=== PATIENT | male | born 2000 | race Caucasian/White ===

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

== ENCOUNTER 2023-06-12 19:39 | Observation (INO) | payer BC ==
--- NOTE | 2023-06-12 19:58 | ERPHSYRPT ---
- History of Present Illness Time Seen by Provider: 06/12/23 20:00 Historian: patient Exam Limitations: no limitations Patient Subjective Stated Complaint: rt side abd pain Triage Nursing Assessment: pt ambulated into ER without diff, significant other at bedside. Pt c/o RLQ pain since Sunday. Pt had vomiting on Sunday, but no nausea, vomiting or diarrhea since Sunday. Pt denies any indigestion, but states, "I feel constipated". LBM today but very minimal. Abd firm with active bs x4 quad, tender to RLQ on palpation. Physician History: Patient is a 22-year-old male presents to our ED as a referral from [facility] for evaluation of right lower quadrant pain. Patient states his right lower quadrant pain started last Sunday, 2 days ago. 3 days ago patient had a bout of emesis. Patient states his pain is progressive. Patient states "I feel constipated". However last bowel movement was small in amount however otherwise normal. Patient has no significant past medical history. Patient declined pain medication at this time. Symptoms are mild to moderate in intensity. Pain worse with palpation. Pain improved with rest. Significant other at bedside. They voiced no other complaints or concerns at this time. Portions of this note were created with voice recognition technology. There may be grammatical, spelling, punctuation or sound alike errors Timing/Duration: day(s) Activities at Onset: none Quality: aching Abdominal Pain Onset Location: RLQ Pain Radiation: no radiation Severity of Pain-Max: moderate Severity of Pain-Current: mild Modifying Factors: Improves With: palpation Associated Symptoms: vomiting Previous symptoms: no prior history Allergies/Adverse Reactions: azithromycin [From Zithromax] Allergy (Intermediate, Verified 06/12/23 19:54) ceftriaxone [From Rocephin] Allergy (Intermediate, Verified 06/12/23 19:54) Home Medications: No Reportable Medications [No Reported Medications] 06/12/23 [History] Hx Tetanus, Diphtheria Vaccination/Date Given: Yes Hx Influenza Vaccination/Date Given: No Hx Pneumococcal Vaccination/Date Given: No Immunizations Up to Date: No Travel Risk - International Travel Have you traveled outside of the country in past 3 weeks: No - Coronavirus Screening Are you exhibiting any of the following symptoms?: No Close contact with a COVID-19 positive Pt in past 14-21 Days: No - Vaccine Status Have you recieved a Covid-19 vaccination: No - Review of Systems Constitutional: No Symptoms, No Fever, No Chills Eyes: No Symptoms Ears, Nose, & Throat: No Symptoms Respiratory: No Symptoms, No Cough, No Dyspnea Cardiac: No Symptoms, No Chest Pain, No Edema, No Syncope Abdominal/Gastrointestinal: No Symptoms, No Abdominal Pain, No Nausea, No Vomiting, No Diarrhea Genitourinary Symptoms: No Symptoms, No Dysuria Musculoskeletal: No Symptoms, No Back Pain, No Neck Pain Skin: No Symptoms, No Rash Neurological: No Symptoms, No Dizziness, No Focal Weakness, No Sensory Changes Psychological: No Symptoms Endocrine: No Symptoms Hematologic/Lymphatic: No Symptoms Immunological/Allergic: No Symptoms All Other Systems: Reviewed and Negative - Past Medical History Pertinent Past Medical History: Yes Neurological History: No Pertinent History ENT History: No Pertinent History, Other Cardiac History: No Pertinent History Respiratory History: Bronchitis Endocrine Medical History: No Pertinent History Musculoskeletal History: No Pertinent History GI Medical History: No Pertinent History History: No Pertinent History Psycho-Social History: No Pertinent History Male Reproductive Disorders: No Pertinent History Other Medical History: 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 both eardrums reconstructed. tumor removed to rt arm - Social History Smoking Status: Never smoker Exposure to second hand smoke: No Drug Use: none Patient Lives Alone: No - Nursing Vital Signs Nursing Vital Signs: Initial Vital Signs Temperature 99.1 F 06/12/23 19:43 Pulse Rate 99 H 06/12/23 19:43 Respiratory Rate 20 06/12/23 19:43 Blood Pressure 128/78 06/12/23 19:43 O2 Sat by Pulse Oximetry 100 06/12/23 19:43 Pain Scale Pain Intensity 5 - Physical Exam General Appearance: no apparent distress, alert Eye Exam: PERRL/EOMI, eyes nml inspection Ears, Nose, Throat Exam: normal ENT inspection, pharynx normal, moist mucous membranes Neck Exam: normal inspection, non-tender, supple, full range of motion Respiratory Exam: normal breath sounds, lungs clear, airway intact, No respiratory distress Cardiovascular Exam: regular rate/rhythm, normal heart sounds, normal peripheral pulses Gastrointestinal/Abdomen Exam: soft, tenderness, other (Tenderness to palpation right lower quadrant), No mass Back Exam: normal inspection, normal range of motion, No CVA tenderness, No vertebral tenderness Extremity Exam: normal inspection, normal range of motion, pelvis stable Neurologic Exam: alert, oriented x 3, cooperative, normal mood/affect, sensation nml, No motor deficits Skin Exam: normal color, warm, dry Lymphatic Exam: No adenopathy SpO2 Interpretation: normal SpO2: 100 O2 Delivery: Room Air - Course Nursing assessment & vital signs reviewed: Yes - CT Exams Abdomen/Pelvis CT Interpretation: Tele-radiologist Report (Acute appendicitis, nephrolithiasis, mild to moderate degenerative changes in the thoracolumbar spine with tiny osteophyte formation Schmorl node and formation of multilevel wedge compression fractures these findings are inconsistent with the patient's age workup for Shermans disease is advised afte) Ordered Tests: Active Orders 24 hr Category Date Time Status IV Insertion STAT Care 06/12/23 21:25 Active ABDOMEN AND PELVIS W/0 CONTRAS [CT] Stat Exams 06/12/23 19:41 Completed CBC W DIFF Stat Lab 06/12/23 21:10 Completed CMP Stat Lab 06/12/23 21:10 Completed LIPASE Stat Lab 06/12/23 21:10 Completed UA W/RFX UR CULTURE Stat Lab 06/12/23 21:38 Ordered Medication Summary Generic Name Dose Route Start Last Admin Trade Name Freq PRN Reason Stop Dose Admin Sodium Chloride 1,000 mls @ 999 mls/hr 06/12/23 21:25 06/12/23 21:42 Sodium Chloride 0.9% 1000 Ml IV 06/12/23 22:25 999 mls/hr .Q1H1M STA Administration Levofloxacin/Dextrose 500 mg in 100 mls @ 100 mls/hr 06/12/23 21:26 Levofloxacin 500mg/100ml D5w IV 06/12/23 22:25 STAT STA Discontinued Medications Generic Name Dose Route Start Last Admin Trade Name Freq PRN Reason Stop Dose Admin Metronidazole 500 mg in 100 mls @ 200 mls/hr 06/12/23 21:26 06/12/23 21:43 Flagyl 500 Mg Ivpb IV 06/12/23 21:55 200 ml/hr STAT STA 200 mls/hr Administration Metronidazole Confirm 06/12/23 21:31 Flagyl 500 Mg Ivpb Administered 06/12/23 21:32 Dose 500 mg in 100 mls @ ud IV .STK-MED ONE Sodium Chloride Confirm 06/12/23 21:31 Sodium Chloride 0.9% 1000 Ml Administered 06/12/23 21:32 Dose 1,000 mls @ ud .ROUTE .STK-MED ONE Morphine Sulfate 4 mg 06/12/23 21:42 Morphine Sulfate 4 Mg/Ml Injection IV 06/12/23 21:43 STAT ONE Morphine Sulfate Confirm 06/12/23 22:07 Morphine Sulfate 4 Mg/Ml Injection Administered 06/12/23 22:08 Dose 4 mg .ROUTE .STK-MED ONE Ondansetron HCl 4 mg 06/12/23 21:42 Ondansetron Hcl 4 Mg/2 Ml Vial IV 06/12/23 21:43 STAT ONE Ondansetron HCl Confirm 06/12/23 22:07 Ondansetron Hcl 4 Mg/2 Ml Vial Administered 06/12/23 22:08 Dose 4 mg .ROUTE .STK-MED ONE Lab/Rad Data: Laboratory Result Diagrams 06/12/23 21:10 06/12/23 21:10 Laboratory Results 06/12/23 06/12/23 Range/Units 21:10 21:10 WBC 14.6 H (4.0-10.5) x10^3/uL RBC 5.34 (4.1-5.6) x10^6/uL Hgb 15.4 (12.5-18.0) g/dL Hct 46.0 (42-50) % MCV 86.1 (78-100) fL MCH 28.8 (26-32) pg MCHC 33.5 (32-36) g/dL RDW 11.9 (11.5-14.0) % Plt Count 238 (150-450) x10^3/uL MPV 10.6 (7.5-11.0) fL Gran % 76.8 H (36.0-66.0) % Immature Gran % (Auto) 0.3 (0.00-0.4) % Nucleat RBC Rel Count 0.0 (0.00-0.1) % Eos # (Auto) 0.08 (0-0.5) x10^3/uL Immature Gran # (Auto) 0.04 H (0.00-0.03) x10^3u/L Absolute Lymphs (auto) 2.14 (1.0-4.6) x10^3/uL Absolute Monos (auto) 1.11 (0.0-1.3) x10^3/uL Absolute Nucleated RBC 0.00 (0.00-0.01) x10^3u/L Lymphocytes % 14.7 L (24.0-44.0) % Monocytes % 7.6 (0.0-12.0) % Eosinophils % 0.5 (0.00-5.0) % Basophils % 0.1 (0.0-0.4) % Absolute Granulocytes 11.18 H (1.4-6.9) x10^3/uL Basophils # 0.02 (0-0.4) x10^3/uL Sodium 135 L (137-145) mmol/L Potassium 4.1 (3.5-5.1) mmol/L Chloride 98 (98-107) mmol/L Carbon Dioxide 27 (22-30) mmol/L Anion Gap 14.3 (5-15) MEQ/L BUN 14 (9-20) mg/dL Creatinine 0.77 (0.66-1.25) mg/dL Estimated GFR 130.6 ML/MIN Glucose 96 (74-106) mg/dL Calcium 9.7 (8.4-10.2) mg/dL Total Bilirubin 1.90 H (0.2-1.3) mg/dL AST 24 (17-59) U/L ALT 28 (0-50) U/L Alkaline Phosphatase 80 (38-126) U/L Serum Total Protein 8.3 H (6.3-8.2) g/dL Albumin 4.5 (3.5-5.0) g/dL Lipase 32 (23-300) U/L - Progress Progress: improved Progress Note: Patient his mother and his aunt were advised of the findings of acute appendicitis as well as the multilevel wedge compression fractures of the spine. The suspicion for Shermans disease was conveyed to patient and family. They agree to follow-up with their primary care doctor for further evaluation and treatment 06/12/23 22:[address] Figueroa at 10:09 PM. He advised admitting to the medical service. He may possibly take patient to the OR tonight for an appendectomy. Antibiotics infused. Pain medication administered. IV fluids infusing. Patient has been n.p.o. since yesterday. Plan of care discussed with patient and family. They agree to admission to [facility] for further evaluation and treatment. Portions of this note were created with voice recognition technology. There may be grammatical, spelling, punctuation or sound alike errors Complexity of problems addressed is high, severe exacerbation with threat to bodily function. No critical care time Complexity of data reviewed and analyzed is extensive. Test ordered test reviewed. Results analyzed and correlated clinically. Plan of care discussed with on-call general surgeon as well as hospitalist. Risk of complication and or risk of morbidity/mortality of patient management is high. Patient will require hospitalization for further evaluation and treatment. Vital stable. Time spent to admit patient is approximately 20 minutes. Plan of care established for shared decision making. Portions of this note were created with voice recognition technology. There may be grammatical, spelling, punctuation or sound alike errors 06/12/23 22:[address] Calzada/hospitalist at 10:26 PM 06/12/23 22:[address] Palacios Counseled pt/family regarding: lab results, diagnosis, rad results - Departure Departure Disposition: Observation Clinical Impression: Acute appendicitis, Nephrolithiasis, Scheurmann's disease, Wedge compression fractures of spine, Leukocytosis Condition: Stable Critical Care Time: No Referrals: KATHY TALAMANTES [employer] NURSE SUPERVISOR [Primary Care Provider] - Follow up/PCP as directed
--- NOTE | 2023-06-12 21:11 | XRAY ---
CLINICAL HISTORY:abd pain COMPARISON:None. TECHNIQUE:CT scan of the abdomen and pelvis was performed without IV contrast. Coronal and sagittal reconstructions were also obtained. FINDINGS: Edematous and swollen tubular structure measuring 15 mm is noted in right iliac fossa with marked perilesional fat stranding. The cecum and proximal ascending colon are also edematous. Ileocecal valve and distal ileum also appear to be involved by the inflammatory process. Several mesenteric lymph nodes are visualized, particularly along right colic branch and iliocolic branch of SMA, index node measuring 8.0 mm in short axis. Mild to moderate amount of free fluid is identified in right iliac fossa with peritoneal thickening. No definite collection or abscess noted. Liver is normal size and shape and with regular margins. No focal or diffuse parenchymal abnormality. No hepatic mass is identified. The portal vein, intrahepatic biliary radicals and the bile ducts are normal. Gall bladder appears normal with wall thickness. No radio opaque calculus or pericholecystic fluid is identified. Common bile duct appears normal. Pancreas appears normal. No peripancreatic fat stranding, pancreatic pseudocyst or peripancreatic fluid collection. Spleen normal in size, no mass seen. Atleast two subcentimeter splenenculi seen at hium. Both adrenal glands are unremarkable. Both kidneys are normal in size, shape and orientation. A 5 mm non-obstructing calculus seen at mid pole of right kidney without hydronephrosis. No calculi, cyst mass or hydronephrosis seen on left side. Both ureters and urinary bladder appear normal. Stomach and rest small and large bowel loops are unremarkable. No obstruction is identified. Sigmoid and rectum appear normal. Pelvic viscera show normal morphology. Multiple phleboliths are seen in pelvis. No evidence of pelvic side wall lymphadenopathy. Visualized thoracic and lumbar spine show mild degenerative changes in the form of tiny osteophyte formation, schmoral node formation and multiple wedge shaped compression fractures. Visualized lung bases are unremarkable. No pleural or pericardial effusion seen. IMPRESSION: 1. 15 mm dilated tubular structure seen in right iliac fossa with extensive perilesional fat stranding, edematous caecum ,proximal ascending colon and distal ileum with reactive appearing loco-regional lymphadenopathy. Mild to moderate amount of free fluid is seen in right iliac fossa, no definite collection/abscess is seen. These findings are concerning for acute appendicitis. Clinical evaluation is advised. 2. 5 mm non-obstructing calculus seen in midpole of right kidney. 3. Mild to moderate degenerative changes in visualized thoraco-lumbar spine with tiny osteophyte formation, schmorl node formation and multilevel wedge compression fractures. These findings are inconsistent with the age of patient. Work up for Scheurman disease is advised after resolution of acute pathology. [facility] ER was called at at 09:03 PM EST, 06/12/2023 and results were verbally communicated to Dr. Restrepo. Electronically Signed by: Cintia Hyde MD. (06/12/2023 21:07:23 EST)
[2023-06-12] MEDS ORDERED: Sodium Chloride 0.9% 1000 ML 1,000 ML IV STA (21:25)
[2023-06-12] MEDS ORDERED: FLAGYL 500 MG IVPB 500 MG/100 ML BAG IV STA (21:26)
[2023-06-12] MEDS ORDERED: Levofloxacin 500MG/100ML D5W 500 MG/100 ML BAG IV STA (21:26)
[2023-06-12] MEDS ORDERED: FLAGYL 500 MG IVPB 500 MG/100 ML BAG IV ONE (21:31)
[2023-06-12] MEDS ORDERED: Sodium Chloride 0.9% 1000 ML 1,000 ML ONE (21:31)
[2023-06-12 21:35] LABS: ALBUMIN 4.5 g/dL (3.5-5.0); ANION GAP 14.3 MEQ/L (5-15); BILIRUBIN,TOTAL 1.9 mg/dL (0.2-1.3); Calcium 9.7 mg/dL (8.4-10.2); Creatinine 1 0.77 mg/dL (0.66-1.25); EST GLOMERULAR FILTRATION RATE 130.6 ML/MIN; Potassium 4.1 mmol/L (3.5-5.1); Total Protein 8.3 g/dL (6.3-8.2)
[2023-06-12 21:41] LABS: Absolute Neutrophil Ct (ANC) 11.18 x10^3/uL (1.4-6.9); BASOPHIL % 0.1 % (0.0-0.4); Basophil (Absolute #) 0.02 x10^3/uL (0-0.4); Eosinophil % 0.5 % (0.00-5.0); Eosinophil (Absolute #) 0.08 x10^3/uL (0-0.5); Hemoglobin 15.4 g/dL (12.5-18.0); IMMATURE GRAN # 0.04 x10^3u/L (0.00-0.03); IMMATURE GRAN % 0.3 % (0.00-0.4); Lymphocyte (Absolute #) 2.14 x10^3/uL (1.0-4.6); Lymphocytes % 14.7 % (24.0-44.0); Mean Cell Volume 86.1 fL (78-100); Mean Corpuscular Hemoglobin 28.8 pg (26-32); Mean Corpuscular Hgb Concent. 33.5 g/dL (32-36); Mean Platelet Volume 10.6 fL (7.5-11.0); Monocyte (Absolute #) 1.11 x10^3/uL (0.0-1.3); Monocytes % 7.6 % (0.0-12.0); Neutrophil % 76.8 % (36.0-66.0); Platelet Count 238 x10^3/uL (150-450); Red Blood Count 5.34 x10^6/uL (4.1-5.6); Red Cell Distribution Width 11.9 % (11.5-14.0); White Blood Count 14.6 x10^3/uL (4.0-10.5)
[2023-06-12] MEDS ORDERED: MORPHINE SULFATE 4 MG INJ IV ONE (21:42)
[2023-06-12] MEDS ORDERED: Zofran 4 MG/2 ML VIAL IV ONE (21:42)
[2023-06-12] MEDS ORDERED: Zofran 4 MG/2 ML VIAL ONE (22:07)
[2023-06-12] MEDS ORDERED: MORPHINE SULFATE 4 MG INJ ONE (22:07)
[2023-06-12] MEDS ORDERED: Levofloxacin 500MG/100ML D5W 500 MG/100 ML BAG IV ONE (22:18)
[2023-06-12 22:31] LABS: Appearance Clear (Clear); Bacteria None Seen /HPF (None Seen); Bilirubin Small (Negative); Blood Negative (Negative); Epithelial Cells None Seen /HPF (None Seen); Glucose, Urine Negative (Negative); Hyaline Casts NONE SEEN /LPF (0-2); Ketones 80 (Negative); Leukocyte Esterase Negative (Negative); Nitrite Negative (Negative); Ph 5.5 (4.6-8.0); Protein,Urine Dip Trace (Negative); RBC 0-2 /HPF (0-5); WBC 0-2 /HPF (0-5)
[2023-06-12 22:33] LABS: ADD URINE CULTURE? NO (NO)
[2023-06-12] MEDS ORDERED: Quelicin Fliptop 200 MG/10 ML ONE (23:03)
[2023-06-12] MEDS ORDERED: Versed 2 MG/2 ML Injection ONE (23:03)
[2023-06-12] MEDS ORDERED: SUBLIMAZE 100 MCG/2 ML ONE (23:03)
[2023-06-12] MEDS ORDERED: DIPRIVAN 200 MG/20 ML IV ONE (23:03)
[2023-06-12] MEDS ORDERED: Zemuron 100 MG/10 ML ONE (23:03)
[2023-06-12] MEDS ORDERED: Sensorcaine 0.25% 10 ML ONE (23:05)
[2023-06-12] MEDS ORDERED: Lactated Ringers 2,000 ML IV ONE (23:31)
[2023-06-12] MEDS ORDERED: Xylocaine-Mpf 2% 5 Ml Vial ONE (23:36)
[2023-06-13] MEDS ORDERED: Sodium Chloride 100ML MINI-BAG PLUS 100 ML IV ONE ×2 (00:01→04:57)
[2023-06-13] MEDS ORDERED: SUBLIMAZE 100 MCG/2 ML ONE (00:09)
[2023-06-13] MEDS ORDERED: Zemuron 100 MG/10 ML ONE (00:13)
[2023-06-13] MEDS ORDERED: TORAdol 30 mg Injection ONE (00:30)
[2023-06-13] MEDS ORDERED: Zofran 4 MG/2 ML VIAL ONE ×2 (00:30→02:05)
[2023-06-13] MEDS ORDERED: BRIDION 200MG/2ML IV ONE (00:30)
[2023-06-13] MEDS ORDERED: Hydromorphone 1 mg/ml Injection ONE ×2 (01:02→01:22)
[2023-06-13] MEDS ORDERED: FEVERALL 650 MG PR PRN (03:50)
[2023-06-13] MEDS ORDERED: PROTONIX 40 MG IV IV SCH ×2 (04:00→22:00)
--- NOTE | 2023-06-13 04:07 | PCM.HP ---
History of Present Illness - Chief Complaint Date: 06/12/23 History of Present Illness: is a 22 year old male who presented as a referral from [facility] after the patient reported progressively worsening right lower quadrant abdominal pain which began 2 days prior to admission, with one episode of emesis (nonbilious and nonbloody) 3 days ago. He reported feeling "constipated" in the ED but his last bowel movement was small in amount however otherwise normal without blood. No fever was reported. - Review of Systems Constitutional: No Symptoms Eyes: No Symptoms Ears, Nose, & Throat: No Symptoms Respiratory: No Symptoms Cardiac: No Symptoms Abdominal/Gastrointestinal: Abdominal Pain, Nausea, Vomiting Genitourinary Symptoms: No Symptoms Musculoskeletal: Back Pain Skin: No Symptoms Neurological: No Symptoms Psychological: No Symptoms Endocrine: No Symptoms Hematologic/Lymphatic: No Symptoms Immunological/Allergic: No Symptoms Medications & Allergies Home Medications: Home Medication List No Reportable Medications [No Reported Medications] 06/12/23 [History Confirmed 06/12/23] Allergies/Adverse Reactions: Allergies Allergy/AdvReac Type Severity Reaction Status Date / Time azithromycin [From Zithromax] Allergy Intermediate Verified 06/12/23 19:54 ceftriaxone [From Rocephin] Allergy Intermediate Verified 06/12/23 19:54 - Past Medical History Past Medical History: Yes Neurological History: No Pertinent History ENT History: No Pertinent History, Other Cardiac History: No Pertinent History Respiratory History: Bronchitis Endocrine Medical History: No Pertinent History Musculoskelatal History: No Pertinent History GI Medical History: No Pertinent History History: No Pertinent History Pyscho-Social History: No Pertinent History Male Reproductive Disorders: No Pertinent History Comment: 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 both eardrums reconstructed. tumor removed to rt arm - Social History Smoking Status: Never smoker Exposure to second hand smoke: No Alcohol: Rarely Drug Use: none - Physical Exam Vital Signs: Vital Signs - 24 hr Temp Pulse Resp BP BP Pulse Ox 06/12/23 22:30 100.1 F 90 18 128/78 100 06/12/23 22:27 100 06/12/23 22:20 100 06/12/23 22:14 94 H 18 126/81 99 06/12/23 21:30 125/70 06/12/23 21:00 103 H 18 117/82 100 06/12/23 20:30 103 H 16 135/87 99 06/12/23 20:19 93 H 15 134/85 99 06/12/23 20:00 94 H 14 129/78 99 06/12/23 19:43 99.1 F 99 H 20 128/78 100 General Appearance: no apparent distress, alert Neurologic Exam: alert, oriented x 3, cooperative, cost recovery technician II-XII nml as tested, normal mood/affect, nml cerebellar function Eye Exam: PERRL/EOMI, eyes nml inspection Ears, Nose, Throat Exam: normal ENT inspection Neck Exam: normal inspection, non-tender, supple, full range of motion Respiratory Exam: normal breath sounds, lungs clear Cardiovascular Exam: regular rate/rhythm, normal heart sounds Gastrointestinal/Abdomen Exam: soft, normal bowel sounds, tenderness (right side of abdomen wound covered in dressing) Back Exam: normal range of motion Extremity Exam: normal inspection, normal range of motion Skin Exam: normal color Results - Labs Lab/Micro Results: Lab Results-Last 24 Hours 06/12/23 06/12/23 06/12/23 Range/Units 21:10 21:10 21:38 WBC 14.6 H (4.0-10.5) x10^3/uL RBC 5.34 (4.1-5.6) x10^6/uL Hgb 15.4 (12.5-18.0) g/dL Hct 46.0 (42-50) % MCV 86.1 (78-100) fL MCH 28.8 (26-32) pg MCHC 33.5 (32-36) g/dL RDW 11.9 (11.5-14.0) % Plt Count 238 (150-450) x10^3/uL MPV 10.6 (7.5-11.0) fL Gran % 76.8 H (36.0-66.0) % Immature Gran % (Auto) 0.3 (0.00-0.4) % Nucleat RBC Rel Count 0.0 (0.00-0.1) % Eos # (Auto) 0.08 (0-0.5) x10^3/uL Immature Gran # (Auto) 0.04 H (0.00-0.03) x10^3u/L Absolute Lymphs (auto) 2.14 (1.0-4.6) x10^3/uL Absolute Monos (auto) 1.11 (0.0-1.3) x10^3/uL Absolute Nucleated RBC 0.00 (0.00-0.01) x10^3u/L Lymphocytes % 14.7 L (24.0-44.0) % Monocytes % 7.6 (0.0-12.0) % Eosinophils % 0.5 (0.00-5.0) % Basophils % 0.1 (0.0-0.4) % Absolute Granulocytes 11.18 H (1.4-6.9) x10^3/uL Basophils # 0.02 (0-0.4) x10^3/uL Sodium 135 L (137-145) mmol/L Potassium 4.1 (3.5-5.1) mmol/L Chloride 98 (98-107) mmol/L Carbon Dioxide 27 (22-30) mmol/L Anion Gap 14.3 (5-15) MEQ/L BUN 14 (9-20) mg/dL Creatinine 0.77 (0.66-1.25) mg/dL Estimated GFR 130.6 ML/MIN Glucose 96 (74-106) mg/dL Calcium 9.7 (8.4-10.2) mg/dL Total Bilirubin 1.90 H (0.2-1.3) mg/dL AST 24 (17-59) U/L ALT 28 (0-50) U/L Alkaline Phosphatase 80 (38-126) U/L Serum Total Protein 8.3 H (6.3-8.2) g/dL Albumin 4.5 (3.5-5.0) g/dL Lipase 32 (23-300) U/L Urine Color Dark Yellow (Yellow) Urine Appearance Clear (Clear) Urine pH 5.5 (4.6-8.0) Ur Specific [place] 1.020 (1.005-1.030) Urine Protein Trace A (Negative) Urine Glucose (UA) Negative (Negative) mg/dL Urine Ketones 80 A (Negative) Urine Blood Negative (Negative) Urine Nitrite Negative (Negative) Urine Bilirubin Small A (Negative) Urine Urobilinogen 2.0 A (0.2) mg/dL Ur Leukocyte Esterase Negative (Negative) U Hyaline Cast (Auto) NONE SEEN (0-2) /LPF Urine Microscopic RBC 0-2 (0-5) /HPF Urine Microscopic WBC 0-2 (0-5) /HPF Ur Epithelial Cells None Seen (None Seen) /HPF Urine Bacteria None Seen (None Seen) /HPF Urine Culture Reflexed NO (NO) - Radiology Impressions Radiology Exams & Impressions: Radiology Procedures Category Date Time Status ABDOMEN AND PELVIS W/0 CONTRAS [CT] Stat Exams 06/12/23 19:41 Completed - Other Procedures and Tests Respiratory Therapy 06/13/23 03:57 Incentive Spirometry TID Assessment/Plan (1) Acute appendicitis Current Visit: Yes Status: Acute Assessment & Plan: S/P Appendectomy. CT scan suggests ascending colitis, which may require extended antibiotics course. Surgery following. Analgesia. Advancing diet. Code(s): K35.80 - UNSPECIFIED ACUTE APPENDICITIS (2) Leukocytosis Current Visit: Yes Status: Acute Assessment & Plan: Likely due to appendicitis. UA negative. Will monitor trend. On IV antibiotics. 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 Will need follow up with PCP as outpatient with further workup. The patient has reported some vague back pain but there was no acute worsening or trauma recently. Code(s): M42.00 - JUVENILE OSTEOCHONDROSIS OF SPINE, SITE UNSPECIFIED Telemedicine Encounter - Telemedicine Encounter Telemedicine Encounter: The entirety of this encounter was performed via Telemedicine"
[2023-06-13] MEDS ORDERED: Zofran 4 MG/2 ML VIAL IV PRN ×2 (04:13→05:25)
[2023-06-13] MEDS ORDERED: PIPERACILLIN/TAZOBACTAM IV ONE ×2 (04:57)
[2023-06-13] MEDS ORDERED: MORPHINE SULFATE 2 MG INJ IV PRN (05:01)
[2023-06-13] MEDS: PIPERACILLIN/TAZOBACTAM 3.375 GM in Sodium Chloride 100ML MINI-BAG PLUS 100 ML IV SCH ×3 (05:23→17:46)
--- NOTE | 2023-06-13 05:23 | PCM.DS ---
Discharge Summary Date of Admission: 06/13/23 02:00 Date of Discharge: 06/13/23 Admitting Physician: MONO WILKS MD Consults: Consults on Case 06/13/23 03:49 Consult Surgery ROUTINE Primary Care Provider: KATHY TALAMANTES Allergies Allergies azithromycin [From Zithromax] Allergy (Intermediate, Verified 06/12/23 19:54) ceftriaxone [From Rocephin] Allergy (Intermediate, Verified 06/12/23 19:54) Hospital Summary - Hospital Course Hospital Course: is a 22 year old male who presented as a referral from [facility] after the patient reported progressively worsening right lower quadrant abdominal pain which began 2 days prior to admission, with one episode of emesis (nonbilious and nonbloody) 3 days ago. He reported feeling "constipated" in the ED but his last bowel movement was small in amount however otherwise normal without blood. No fever was reported. Patient admitted for acute appendicitis and is s/p appendectomy. Patient treated with zosyn. Incidental finding of possible wedge compression fractures noted on CT. Will need follow up with PCP as outpatient with further workup. The patient has reported some vague back pain but there was no acute worsening or trauma recently. New Diagnosis: Acute appendicitis New Medications: Follow Up: PCP/surgery Results pending: Pathology Latest Assessment & Plan S/P Appendectomy. CT scan suggests ascending colitis, which may require extended antibiotics course. Surgery following. Analgesia. Advancing diet. Code(s): K35.80 - UNSPECIFIED ACUTE APPENDICITIS (2) Leukocytosis Current Visit: Yes Status: Acute Assessment & Plan: Likely due to appendicitis. UA negative. Will monitor trend. On IV antibiotics. 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 Will need follow up with PCP as outpatient with further workup. The patient has reported some vague back pain but there was no acute worsening or trauma recently. Code(s): M42.00 - JUVENILE OSTEOCHONDROSIS OF SPINE, SITE UNSPECIFIED I spent 35 minutes [id number] with the patient on the day of discharge performing discharge exam, discussing hospital stay and discharge instructions with patient and caregivers, preparation of discharge records, prescriptions & referral forms and addressing any questions/concerns the patient had as documented above. - Vitals & Intake/Output Vital Signs: Vital Signs Temperature 100.0 F 06/13/23 04:45 Pulse Rate 99 H 06/13/23 04:45 Respiratory Rate 17 06/13/23 04:45 Blood Pressure 128/66 06/13/23 04:45 O2 Sat by Pulse Oximetry 97 06/13/23 04:45 Intake & Output: Intake & Output 06/10/23 06/11/23 06/12/23 06/13/23 11:59 11:59 11:59 11:59 Weight 105.233 kg - Lab Result Diagrams: 06/12/23 21:10 06/12/23 21:10 Lab Results-Last 24 Hrs: Lab Results-Last 24 Hours 06/12/23 06/12/23 06/12/23 Range/Units 21:10 21:10 21:38 WBC 14.6 H (4.0-10.5) x10^3/uL RBC 5.34 (4.1-5.6) x10^6/uL Hgb 15.4 (12.5-18.0) g/dL Hct 46.0 (42-50) % MCV 86.1 (78-100) fL MCH 28.8 (26-32) pg MCHC 33.5 (32-36) g/dL RDW 11.9 (11.5-14.0) % Plt Count 238 (150-450) x10^3/uL MPV 10.6 (7.5-11.0) fL Gran % 76.8 H (36.0-66.0) % Immature Gran % (Auto) 0.3 (0.00-0.4) % Nucleat RBC Rel Count 0.0 (0.00-0.1) % Eos # (Auto) 0.08 (0-0.5) x10^3/uL Immature Gran # (Auto) 0.04 H (0.00-0.03) x10^3u/L Absolute Lymphs (auto) 2.14 (1.0-4.6) x10^3/uL Absolute Monos (auto) 1.11 (0.0-1.3) x10^3/uL Absolute Nucleated RBC 0.00 (0.00-0.01) x10^3u/L Lymphocytes % 14.7 L (24.0-44.0) % Monocytes % 7.6 (0.0-12.0) % Eosinophils % 0.5 (0.00-5.0) % Basophils % 0.1 (0.0-0.4) % Absolute Granulocytes 11.18 H (1.4-6.9) x10^3/uL Basophils # 0.02 (0-0.4) x10^3/uL Sodium 135 L (137-145) mmol/L Potassium 4.1 (3.5-5.1) mmol/L Chloride 98 (98-107) mmol/L Carbon Dioxide 27 (22-30) mmol/L Anion Gap 14.3 (5-15) MEQ/L BUN 14 (9-20) mg/dL Creatinine 0.77 (0.66-1.25) mg/dL Estimated GFR 130.6 ML/MIN Glucose 96 (74-106) mg/dL Calcium 9.7 (8.4-10.2) mg/dL Total Bilirubin 1.90 H (0.2-1.3) mg/dL AST 24 (17-59) U/L ALT 28 (0-50) U/L Alkaline Phosphatase 80 (38-126) U/L Serum Total Protein 8.3 H (6.3-8.2) g/dL Albumin 4.5 (3.5-5.0) g/dL Lipase 32 (23-300) U/L Urine Color Dark Yellow (Yellow) Urine Appearance Clear (Clear) Urine pH 5.5 (4.6-8.0) Ur Specific [place] 1.020 (1.005-1.030) Urine Protein Trace A (Negative) Urine Glucose (UA) Negative (Negative) mg/dL Urine Ketones 80 A (Negative) Urine Blood Negative (Negative) Urine Nitrite Negative (Negative) Urine Bilirubin Small A (Negative) Urine Urobilinogen 2.0 A (0.2) mg/dL Ur Leukocyte Esterase Negative (Negative) U Hyaline Cast (Auto) NONE SEEN (0-2) /LPF Urine Microscopic RBC 0-2 (0-5) /HPF Urine Microscopic WBC 0-2 (0-5) /HPF Ur Epithelial Cells None Seen (None Seen) /HPF Urine Bacteria None Seen (None Seen) /HPF Urine Culture Reflexed NO (NO) - Radiology Exams Ordered Rad Exams-Entire Visit: Radiology Procedures Category Date Time Status ABDOMEN AND PELVIS W/0 CONTRAS [CT] Stat Exams 06/12/23 19:41 Completed - Procedures and Test Procedures and Tests throughout Hospitalization: Therapy Orders & Screens 06/13/23 03:57 Incentive Spirometry TID Comment: - Discharge Disposition: Home, Self-Care Condition: Stable Prescriptions: No Action No Reportable Medications [No Reported Medications] Additional Instructions: Follow up with your PCP for further evaluation of the incidental findings of wedge fractures/deformities in your spinal column. Follow up with: KATHY TALAMANTES NP [Primary Care Provider] -
[2023-06-13] MEDS ORDERED: PIPERACILLIN/TAZOBACTAM 3.375 GM in Sodium Chloride 100ML MINI-BAG PLUS 100 ML IV SCH (06:00)
[2023-06-13 06:53] LABS: Hematocrit 40.6 % (42-50); Hemoglobin 13.4 g/dL (12.5-18.0); Mean Cell Volume 86.9 fL (78-100); Mean Corpuscular Hemoglobin 28.7 pg (26-32); Mean Platelet Volume 10.3 fL (7.5-11.0); Platelet Count 222 x10^3/uL (150-450); Red Blood Count 4.67 x10^6/uL (4.1-5.6); Red Cell Distribution Width 11.9 % (11.5-14.0)
[2023-06-13] MEDS ORDERED: MORPHINE SULFATE 4 MG INJ IV PRN (07:02)
[2023-06-13 07:33] LABS: ALBUMIN 3.7 g/dL (3.5-5.0); BILIRUBIN,TOTAL 2.8 mg/dL (0.2-1.3); Calcium 8.7 mg/dL (8.4-10.2); Creatinine 1 0.76 mg/dL (0.66-1.25); EST GLOMERULAR FILTRATION RATE 131.1 ML/MIN; Potassium 4.1 mmol/L (3.5-5.1); Total Protein 6.9 g/dL (6.3-8.2)
[2023-06-13] MEDS: NORCO 5/325 MG PO PRN ×4 (08:17→22:18)
[2023-06-13] MEDS: Acidophilus TABLET PO SCH (08:18)
--- NOTE | 2023-06-13 09:10 | CONS ---
CONSULT DATE: 06/12/2023 HISTORY: This 22-year-old had some abdominal pain on the right side of his abdomen since Sunday. He had a little bit of nausea, sick a little bit. No new bloody stools. PAST MEDICAL HISTORY: Denies chronic illnesses. PAST SURGICAL HISTORY: Tumor removed from his arm. [place] teeth. Ear reconstruction. He denied prior abdominal surgery. HOME MEDICATIONS: None on a regular basis. ALLERGIES: ROCEPHIN. ZITHROMAX. HE THINKS HE HAS TAKEN PENICILLIN IN THE PAST. FAMILY HISTORY: Negative for diabetes, cancer, inflammatory bowel disease according to the patient. SOCIAL HISTORY: He denies smoking. He denies alcohol abuse. REVIEW OF SYSTEMS: Twelve systems reviewed. No chest pain or palpitations other systems negative or noncontributory as above and per preadmission questionnaire. PHYSICAL EXAMINATION: GENERAL: No acute distress. HEENT: Sclera nonicteric. EOMI. Oral mucous membranes moist. NECK: No JVD. CHEST: Equal excursion, nonlabored breathing. CVS: Regular rate and rhythm. ABDOMEN: Soft, some tenderness in right lower quadrant, a little bit of voluntary guarding. No rebound currently. EXTREMITIES: No cyanosis. NEURO: Alert, moving extremities grossly symmetrically. PSYCH: Appropriate mood and affect. SKIN: Dry. LAB DATA AND TESTS: Labs reviewed. CT scan reviewed personally. He has a dilated appendix. Radiologist feels consistent with acute appendicitis. IMPRESSION: Acute right lower quadrant pain. History and physical exam suspicious for acute appendicitis. The differential could include colitis, infectious versus inflammatory bowel disease or other etiology. Either way given the size of the appendix on scan, I recommend proceeding with diagnostic laparoscopy, laparoscopic appendectomy possible open with OR time available. General risk of bleeding or infection, risk of trocar injury or hernia, risk of bowel, bladder or blood vessel injury, risk of subsequent intraabdominal abscess or fistula formation possibly requiring percutaneous or open drainage. General risk of anesthesia, deep vein thrombosis, pulmonary embolism, pneumonia. Risk of bloating, ileus or obstruction, risk of ongoing infection, possibility of finding a normal appendix likely would be removed incidentally and look for other etiology that might need taken care of surgically. Otherwise, general risk of aches and pains but not limited to. Consent obtained. He understands if it happens to be perforated there is a good chance he will be in the hospital longer. Will proceed with diagnostic laparoscopy, laparoscopic appendectomy possible open when OR time available.
--- NOTE | 2023-06-13 09:35 | OP ---
SURGERY DATE/TIME: 06/12/2023 2180 PREOPERATIVE DIAGNOSIS: Acute appendicitis. POSTOPERATIVE DIAGNOSIS: Acute perforated appendicitis. PROCEDURE: Laparoscopic appendectomy. SURGEON: Dr. José Manuel Figueroa. ANESTHESIA: General. ESTIMATED BLOOD LOSS: Minimal. INDICATIONS: As noted above. Risks and benefits explained in detail but not limited to, consent obtained. DESCRIPTION OF PROCEDURE AND FINDINGS: The patient is taken to the operating room. General anesthesia induced. Abdomen prepped and draped in usual sterile fashion. After official time out and no disagreement with planned procedure, a transverse incision made supraumbilical area. Fascia grasped and pulled upwards. Veress needle inserted and tested with saline. Pneumoperitoneum accomplished insufflating from opening pressure of 0 to 15. A 5 mm bladeless port and camera were inserted without difficulty followed by a lower midline 5 mm port and 12 mm right upper quadrant port. Extensive omental reaction around the appendicitis was quite inflamed with some reaction of the drainage on the small bowel mesentery. The small bowel itself appeared to be viable this is retrocecal and quite inflamed against the side wall. It took quite some time using LigaSure device slowly mobilizing the right colon and cecum medially dissecting out around the lateral edges of the appendix to finally locate the base with vague phlegmon. There was small perforation with extensive localized peritonitis. The appendix was mobilized up after taking the mesoappendix down with the LigaSure device. Appendix mobilized upwards and transected with the THONG stapler, a couple sequential reloads. Appeared to have good hemostasis. Appendix placed in the [place] sac. Some irrigation had been accomplished. The appendix had been placed in the bag, pulled free and passed off out the 12 port site. This port site was closed with puncture closure device with #1 Vicryl. I would have irrigated a little bit more but there was no suction power brake operator available and did not make sense to open the patient for only a small amount of additional irrigation. MELODY drain was left in place given the localized perforation in the right lower quadrant through inferior 5 port secured with PDS suture and placed to bulb suction. At this point pneumoperitoneum decompressed. 0.25% Marcaine local injected along the skin incision fascial defect. Packing is placed to be gradually advanced out over the next few days. There were no immediate complications. This was a difficult dissection given his perforation and extensive phlegmon. He tolerated the procedure well. There were no immediate complications. The patient was extubated and transferred to the recovery room in stable condition. I will speak with the family.
--- NOTE | 2023-06-13 10:38 | PCM.NOTE ---
Date and Time: 06/13/23 1025 Subjective Assessment: 22 year old male admitted with acute appendicitis with perforation s/p laproscopic appendectomy. Patient is PODS#1 has MELODY drain in place. Per surgery advance mckayla PODS #2. Patient with mild temperature last night. Endorses 5/10 sharp/achy pain at incision site. No BM yet but is passing flatus. Incision is covered in guaze/tegaderm, CDI, no erythema/streaking. Able to tolerate diet with no N/V. WBC is elevated at 15. Plan is to continue zosyn, advance diet as tolerated, and control pain. Denies fever,cough, sob, cp, abdominal pain, ELIZABETH, dizziness, N/V/D. - Review of Systems Constitutional: Fever Eyes: No Symptoms Ears, Nose, & Throat: No Symptoms Respiratory: No Symptoms Cardiac: No Symptoms Abdominal/Gastrointestinal: Abdominal Pain (at surgical incision site) Genitourinary Symptoms: No Symptoms Musculoskeletal: No Symptoms Skin: No Symptoms Neurological: No Symptoms Psychological: No Symptoms Endocrine: No Symptoms Hematologic/Lymphatic: No Symptoms Immunological/Allergic: No Symptoms Objective Exam General Appearance: no apparent distress Neurologic Exam: alert, oriented x 3, cooperative Skin Exam: other (MELODY drain to right abdomen, surgical incision site CDI covered in gauze) Eye Exam: PERRL Ears, Nose, Throat Exam: normal ENT inspection Neck Exam: normal inspection Respiratory Exam: normal breath sounds, lungs clear Cardiovascular Exam: regular rate/rhythm, normal heart sounds Gastrointestinal/Abdomen Exam: soft, normal bowel sounds, tenderness Extremity Exam: normal inspection Back Exam: normal inspection Male Genitalia Exam: deferred Rectal Exam: deferred OBJECTIVE DATA Vital Signs: Vital Signs - 24 hr Temp Pulse Resp BP BP Pulse Ox 06/13/23 07:06 97.8 F 98 H 16 116/58 96 06/13/23 05:01 98 06/13/23 04:45 100.0 F 99 H 17 128/66 97 06/13/23 03:45 99.4 F 105 H 18 125/56 96 06/13/23 03:15 99.2 F 102 H 16 131/66 95 06/13/23 02:45 99.4 F 107 H 17 129/61 95 06/13/23 02:30 99.2 F 105 H 18 138/62 94 L 06/13/23 02:15 99.2 F 103 H 18 139/70 92 L 06/13/23 02:00 100.1 F 106 H 16 138/70 94 L 06/12/23 22:30 100.1 F 90 18 128/78 100 06/12/23 22:27 100 06/12/23 22:20 100 06/12/23 22:14 94 H 18 126/81 99 06/12/23 21:30 125/70 06/12/23 21:00 103 H 18 117/82 100 06/12/23 20:30 103 H 16 135/87 99 06/12/23 20:19 93 H 15 134/85 99 06/12/23 20:00 94 H 14 129/78 99 06/12/23 19:43 99.1 F 99 H 20 128/78 100 Pain Assessment - Last Documented Pain Intensity 5 Pain Scale Used 0-10 Pain Scale Intake and Output: Intake & Output 06/10/23 06/11/23 06/12/23 06/13/23 11:59 11:59 11:59 11:59 Intake Total 280 Balance 280 Weight 105.233 kg Lab Results: Lab Results-Last 24 Hours 06/12/23 06/12/23 06/12/23 Range/Units 21:10 21:10 21:38 WBC 14.6 H (4.0-10.5) x10^3/uL RBC 5.34 (4.1-5.6) x10^6/uL Hgb 15.4 (12.5-18.0) g/dL Hct 46.0 (42-50) % MCV 86.1 (78-100) fL MCH 28.8 (26-32) pg MCHC 33.5 (32-36) g/dL RDW 11.9 (11.5-14.0) % Plt Count 238 (150-450) x10^3/uL MPV 10.6 (7.5-11.0) fL Gran % 76.8 H (36.0-66.0) % Immature Gran % (Auto) 0.3 (0.00-0.4) % Nucleat RBC Rel Count 0.0 (0.00-0.1) % Eos # (Auto) 0.08 (0-0.5) x10^3/uL Immature Gran # (Auto) 0.04 H (0.00-0.03) x10^3u/L Absolute Lymphs (auto) 2.14 (1.0-4.6) x10^3/uL Absolute Monos (auto) 1.11 (0.0-1.3) x10^3/uL Absolute Nucleated RBC 0.00 (0.00-0.01) x10^3u/L Lymphocytes % 14.7 L (24.0-44.0) % Monocytes % 7.6 (0.0-12.0) % Eosinophils % 0.5 (0.00-5.0) % Basophils % 0.1 (0.0-0.4) % Absolute Granulocytes 11.18 H (1.4-6.9) x10^3/uL Basophils # 0.02 (0-0.4) x10^3/uL Sodium 135 L (137-145) mmol/L Potassium 4.1 (3.5-5.1) mmol/L Chloride 98 (98-107) mmol/L Carbon Dioxide 27 (22-30) mmol/L Anion Gap 14.3 (5-15) MEQ/L BUN 14 (9-20) mg/dL Creatinine 0.77 (0.66-1.25) mg/dL Estimated GFR 130.6 ML/MIN Glucose 96 (74-106) mg/dL Calcium 9.7 (8.4-10.2) mg/dL Total Bilirubin 1.90 H (0.2-1.3) mg/dL AST 24 (17-59) U/L ALT 28 (0-50) U/L Alkaline Phosphatase 80 (38-126) U/L Serum Total Protein 8.3 H (6.3-8.2) g/dL Albumin 4.5 (3.5-5.0) g/dL Lipase 32 (23-300) U/L Urine Color Dark Yellow (Yellow) Urine Appearance Clear (Clear) Urine pH 5.5 (4.6-8.0) Ur Specific [place] 1.020 (1.005-1.030) Urine Protein Trace A (Negative) Urine Glucose (UA) Negative (Negative) mg/dL Urine Ketones 80 A (Negative) Urine Blood Negative (Negative) Urine Nitrite Negative (Negative) Urine Bilirubin Small A (Negative) Urine Urobilinogen 2.0 A (0.2) mg/dL Ur Leukocyte Esterase Negative (Negative) U Hyaline Cast (Auto) NONE SEEN (0-2) /LPF Urine Microscopic RBC 0-2 (0-5) /HPF Urine Microscopic WBC 0-2 (0-5) /HPF Ur Epithelial Cells None Seen (None Seen) /HPF Urine Bacteria None Seen (None Seen) /HPF Urine Culture Reflexed NO (NO) 06/13/23 06/13/23 Range/Units 06:48 06:48 WBC 15.0 H (4.0-10.5) x10^3/uL RBC 4.67 (4.1-5.6) x10^6/uL Hgb 13.4 (12.5-18.0) g/dL Hct 40.6 L (42-50) % MCV 86.9 (78-100) fL MCH 28.7 (26-32) pg MCHC 33.0 (32-36) g/dL RDW 11.9 (11.5-14.0) % Plt Count 222 (150-450) x10^3/uL MPV 10.3 (7.5-11.0) fL Gran % (36.0-66.0) % Immature Gran % (Auto) (0.00-0.4) % Nucleat RBC Rel Count (0.00-0.1) % Eos # (Auto) (0-0.5) x10^3/uL Immature Gran # (Auto) (0.00-0.03) x10^3u/L Absolute Lymphs (auto) (1.0-4.6) x10^3/uL Absolute Monos (auto) (0.0-1.3) x10^3/uL Absolute Nucleated RBC (0.00-0.01) x10^3u/L Lymphocytes % (24.0-44.0) % Monocytes % (0.0-12.0) % Eosinophils % (0.00-5.0) % Basophils % (0.0-0.4) % Absolute Granulocytes (1.4-6.9) x10^3/uL Basophils # (0-0.4) x10^3/uL Sodium 137 (137-145) mmol/L Potassium 4.1 (3.5-5.1) mmol/L Chloride 103 (98-107) mmol/L Carbon Dioxide 24 (22-30) mmol/L Anion Gap 14.0 (5-15) MEQ/L BUN 13 (9-20) mg/dL Creatinine 0.76 (0.66-1.25) mg/dL Estimated GFR 131.1 ML/MIN Glucose 118 H (74-106) mg/dL Calcium 8.7 (8.4-10.2) mg/dL Total Bilirubin 2.80 H (0.2-1.3) mg/dL AST 22 (17-59) U/L ALT 24 (0-50) U/L Alkaline Phosphatase 64 (38-126) U/L Serum Total Protein 6.9 (6.3-8.2) g/dL Albumin 3.7 (3.5-5.0) g/dL Lipase (23-300) U/L Urine Color (Yellow) Urine Appearance (Clear) Urine pH (4.6-8.0) Ur Specific [place] (1.005-1.030) Urine Protein (Negative) Urine Glucose (UA) (Negative) mg/dL Urine Ketones (Negative) Urine Blood (Negative) Urine Nitrite (Negative) Urine Bilirubin (Negative) Urine Urobilinogen (0.2) mg/dL Ur Leukocyte Esterase (Negative) U Hyaline Cast (Auto) (0-2) /LPF Urine Microscopic RBC (0-5) /HPF Urine Microscopic WBC (0-5) /HPF Ur Epithelial Cells (None Seen) /HPF Urine Bacteria (None Seen) /HPF Urine Culture Reflexed (NO) Radiology Exams: Radiology Procedures Category Date Time Status ABDOMEN AND PELVIS W/0 CONTRAS [CT] Stat Exams 06/12/23 19:41 Completed Assessment/Plan (1) Acute appendicitis Current Visit: Yes Status: Acute Assessment & Plan: S/P Appendectomy. CT scan suggests ascending colitis, which may require extended antibiotics course. Surgery following. Analgesia. Advancing diet. 06/13: -PODS #1, doing well, mild pain 5/10 on numerical pain scale -Continue zosyn/pain control -Advance mckayla per surgery PODS#2 -MELODY drain with moderate sanguineous fluid Code(s): K35.80 - UNSPECIFIED ACUTE APPENDICITIS (2) Leukocytosis Current Visit: Yes Status: Acute Assessment & Plan: Likely due to appendicitis. UA negative. Will monitor trend. On IV antibiotics. 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 Will need follow up with PCP as outpatient with further workup. The patient has reported some vague back pain but there was no acute worsening or trauma recently. 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
[2023-06-13] MEDS: Docusate Sodium 100 MG PO PRN (17:46)
[2023-06-14] MEDS: PIPERACILLIN/TAZOBACTAM 3.375 GM in Sodium Chloride 100ML MINI-BAG PLUS 100 ML IV SCH ×3 (00:21→11:28)
[2023-06-14 05:07] LABS: Absolute Neutrophil Ct (ANC) 7.51 x10^3/uL (1.4-6.9); BASOPHIL % 0.3 % (0.0-0.4); Basophil (Absolute #) 0.03 x10^3/uL (0-0.4); Eosinophil % 1.7 % (0.00-5.0); Eosinophil (Absolute #) 0.18 x10^3/uL (0-0.5); Hematocrit 41.8 % (42-50); Hemoglobin 13.6 g/dL (12.5-18.0); IMMATURE GRAN # 0.05 x10^3u/L (0.00-0.03); IMMATURE GRAN % 0.5 % (0.00-0.4); Lymphocyte (Absolute #) 2.14 x10^3/uL (1.0-4.6); Lymphocytes % 19.9 % (24.0-44.0); Mean Cell Volume 88.6 fL (78-100); Mean Corpuscular Hemoglobin 28.8 pg (26-32); Mean Corpuscular Hgb Concent. 32.5 g/dL (32-36); Mean Platelet Volume 10.5 fL (7.5-11.0); Monocyte (Absolute #) 0.87 x10^3/uL (0.0-1.3); Monocytes % 8.1 % (0.0-12.0); Neutrophil % 69.5 % (36.0-66.0); Platelet Count 211 x10^3/uL (150-450); Red Blood Count 4.72 x10^6/uL (4.1-5.6); Red Cell Distribution Width 11.9 % (11.5-14.0); White Blood Count 10.8 x10^3/uL (4.0-10.5)
[2023-06-14] MEDS: NORCO 5/325 MG PO PRN ×2 (05:12→09:48)
[2023-06-14 05:29] LABS: ALBUMIN 3.8 g/dL (3.5-5.0); ANION GAP 11.7 MEQ/L (5-15); BILIRUBIN,TOTAL 2.2 mg/dL (0.2-1.3); Calcium 8.9 mg/dL (8.4-10.2); Creatinine 1 0.83 mg/dL (0.66-1.25); EST GLOMERULAR FILTRATION RATE 127.7 ML/MIN; Potassium 3.9 mmol/L (3.5-5.1)
[2023-06-14 07:23] VITALS: RESP 17
[2023-06-14] MEDS: Docusate Sodium 100 MG PO PRN (09:48)
[2023-06-14] MEDS: Acidophilus TABLET PO SCH (09:48)
--- NOTE | 2023-06-14 10:34 | PCM.DS ---
Discharge Summary Date of Admission: 06/13/23 02:00 Date of Discharge: [id number] Admitting Physician: MONO WILKS MD Consults: Consults on Case 06/13/23 03:49 Consult Surgery ROUTINE Primary Care Provider: KATHY TALAMANTES Allergies Allergies azithromycin [From Zithromax] Allergy (Intermediate, Verified 06/12/23 19:54) ceftriaxone [From Rocephin] Allergy (Intermediate, Verified 06/12/23 19:54) Hospital Summary - Hospital Course Hospital Course: 22 year old male admitted with acute appendicitis with perforation s/p laproscopic appendectomy. Patient is PODS#s day 2. No BM yet but is passing flatus. Incision sites CDI, no erythema/streaking. Able to tolerate diet with no N/V. WBC almost at normal limits. Patient has been cleared by surgery for discharge. Will pull MELODY drain. Patient to continue on oral antibiotics for a week, [place] for pain management. Follow up with surgery in one week. Did advise patient of incidental finding on CT of possible wedge compression fracture, a dvised follow up with PCP. Discussed medication allergies with patient, he states he has had Augmentin in the past and has tolerated it with no issues. All questions/concerns addressed, patient ready for discharge. New Diagnosis: Acute appendicitis New Medications: augmentin/norco Follow Up: PCP/surgery Results pending: Pathology Latest Assessment & Plan (1) Acute appendicitis Current Visit: Yes Status: Acute Assessment & Plan: S/P Appendectomy. CT scan suggests ascending colitis, which may require extended antibiotics course. Surgery following. Analgesia. Advancing diet. 06/13: -PODS #1, doing well, mild pain 5/10 on numerical pain scale -Continue zosyn/pain control -Advance mckayla per surgery PODS#2 -MELODY drain with moderate sanguineous fluid Code(s): K35.80 - UNSPECIFIED ACUTE APPENDICITIS (2) Leukocytosis Current Visit: Yes Status: Acute Assessment & Plan: Likely due to appendicitis. UA negative. Will monitor trend. On IV antibiotics. 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 Will need follow up with PCP as outpatient with further workup. The patient has reported some vague back pain but there was no acute worsening or trauma recently. 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 TUAN TALAMANTES I spent 35 minutes [id number] with the patient on the day of discharge performing discharge exam, discussing hospital stay and discharge instructions with patient and caregivers, preparation of discharge records, prescriptions & referral forms and addressing any questions/concerns the patient had as documented above. - Vitals & Intake/Output Vital Signs: Vital Signs Temperature 98.0 F 06/14/23 07:00 Pulse Rate 95 H 06/14/23 07:00 Respiratory Rate 17 06/14/23 07:00 Blood Pressure 134/63 06/14/23 07:00 O2 Sat by Pulse Oximetry 98 06/14/23 09:15 Intake & Output: Intake & Output 06/11/23 06/12/23 06/13/23 06/14/23 11:59 11:59 11:59 11:59 Intake Total 280 820 Output Total 785 Balance 280 35 Weight 105.233 kg - Lab Result Diagrams: 06/14/23 04:47 06/14/23 04:47 Lab Results-Last 24 Hrs: Lab Results-Last 24 Hours 06/14/23 06/14/23 Range/Units 04:47 04:47 WBC 10.8 H (4.0-10.5) x10^3/uL RBC 4.72 (4.1-5.6) x10^6/uL Hgb 13.6 (12.5-18.0) g/dL Hct 41.8 L (42-50) % MCV 88.6 (78-100) fL MCH 28.8 (26-32) pg MCHC 32.5 (32-36) g/dL RDW 11.9 (11.5-14.0) % Plt Count 211 (150-450) x10^3/uL MPV 10.5 (7.5-11.0) fL Gran % 69.5 H (36.0-66.0) % Immature Gran % (Auto) 0.5 H (0.00-0.4) % Nucleat RBC Rel Count 0.0 (0.00-0.1) % Eos # (Auto) 0.18 (0-0.5) x10^3/uL Immature Gran # (Auto) 0.05 H (0.00-0.03) x10^3u/L Absolute Lymphs (auto) 2.14 (1.0-4.6) x10^3/uL Absolute Monos (auto) 0.87 (0.0-1.3) x10^3/uL Absolute Nucleated RBC 0.00 (0.00-0.01) x10^3u/L Lymphocytes % 19.9 L (24.0-44.0) % Monocytes % 8.1 (0.0-12.0) % Eosinophils % 1.7 (0.00-5.0) % Basophils % 0.3 (0.0-0.4) % Absolute Granulocytes 7.51 H (1.4-6.9) x10^3/uL Basophils # 0.03 (0-0.4) x10^3/uL Sodium 137 (137-145) mmol/L Potassium 3.9 (3.5-5.1) mmol/L Chloride 100 (98-107) mmol/L Carbon Dioxide 29 (22-30) mmol/L Anion Gap 11.7 (5-15) MEQ/L BUN 8 L (9-20) mg/dL Creatinine 0.83 (0.66-1.25) mg/dL Estimated GFR 127.7 ML/MIN Glucose 102 (74-106) mg/dL Calcium 8.9 (8.4-10.2) mg/dL Total Bilirubin 2.20 H (0.2-1.3) mg/dL AST 22 (17-59) U/L ALT 22 (0-50) U/L Alkaline Phosphatase 69 (38-126) U/L Serum Total Protein 7.0 (6.3-8.2) g/dL Albumin 3.8 (3.5-5.0) g/dL - Radiology Exams Ordered Rad Exams-Entire Visit: Radiology Procedures Category Date Time Status ABDOMEN AND PELVIS W/0 CONTRAS [CT] Stat Exams 06/12/23 19:41 Completed - Procedures and Test Procedures and Tests throughout Hospitalization: Therapy Orders & Screens 06/13/23 03:57 Incentive Spirometry TID Comment: Discharge Exam General Appearance: no apparent distress Neurologic Exam: alert, oriented x 3, cooperative Eye Exam: PERRL Ears, Nose, Throat Exam: normal ENT inspection Neck Exam: normal inspection Respiratory Exam: normal breath sounds, lungs clear Cardiovascular Exam: regular rate/rhythm, normal heart sounds Gastrointestinal/Abdomen Exam: soft, normal bowel sounds, tenderness, other (Surgical incision site x 2 1 - RUQ with mckayla, midline with MELODY steri strips) Male Genitalia Exam: deferred Rectal Exam: deferred Back Exam: normal inspection Extremity Exam: normal inspection Skin Exam: normal color Final Diagnosis/Problem List - Final Discharge Diagnosis/Problem (1) Acute appendicitis Current Visit: Yes Status: Resolved Code(s): K35.80 - UNSPECIFIED ACUTE APPENDICITIS (2) Leukocytosis Current Visit: Yes Status: Resolved Code(s): D72.829 - ELEVATED WHITE BLOOD CELL COUNT, UNSPECIFIED (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 875 mg [Augmentin 875-125 Tablet] 875 mg PO BID 7 Days #14 tablet Additional Instructions: Follow up with your PCP for further evaluation of the incidental findings of wedge fractures/deformities in your spinal column. Follow up with: TUAN GIBSON [COURTESY STAFF] - 06/18/23 8:45 am (APPOINTMENT AT [facility] KATHY TALAMANTES NP [Primary Care Provider] - 06/20/23 10:00 am Forms: Work/School Release Form
[2023-06-14 11:45] VITALS: BP 118/63; PULSE 86; TEMP 97.5; O2SAT 94
== END 2023-06-14 12:26 | disposition home or self-care (01) ==
LOC: ED 19:39 → MED SURG 06-13 02:00 → UNDOADMOB 06-13 03:27
PROVIDERS: ADMIT Internal Medicine; ATTEND Internal Medicine
DX: K35.32 Acute appendicitis with perforation, localized peritonitis, and gangrene, without abscess (principal); D72.829 Elevated white blood cell count, unspecified; M42.00 Juvenile osteochondrosis of spine, site unspecified; Z20.828 Contact with and (suspected) exposure to other viral communicable diseases
CPT/HCPCS: 36000; 36415; 44970; 74176; 80053; 81001; 83690; 85025; 85027; 94760; 96365; 96367; 96374; 96375; 99284; G0378; Q3014; 99140; J0330; J1170; J1885; J1956; J2250; J2270; J2405; J2704; J3010; A9270-GY

== ENCOUNTER 2023-06-20 10:24 | Emergency (ER) | payer BC ==
[2023-06-20 10:41] VITALS: TEMP 99.7
--- NOTE | 2023-06-20 10:52 | ERPHSYRPT ---
- History of Present Illness Time Seen by Provider: 06/20/23 10:52 Source: patient Exam Limitations: no limitations Patient Subjective Stated Complaint: Fever Triage Nursing Assessment: Patient ambulated back to ED and transferred self to bed. Patient A+O X 3. Patient's skin pale and diaphoretic. Patient states he had emergency appendectomy on 06/13/[address] Cevallos. Patient states yesterday he started feeling tired and running a fever as high as 101.4. Patient denies pain or discomfort. Patient denies N/V. Physician History: This is a 22-year-old white male patient who has a history of bronchitis and is 6 days out post perforated appendix and laparoscopic appendectomy. Patient was placed on Augmentin antibiotics and he has 1 more dose left. Yesterday and again today, he was feeling tired and he noticed a fever as high as 101.4 F. He had no nausea or vomiting. He denies cough. He has no abdominal pain. He had been feeling better but then was concerned when the fatigue and fever were present. He has no known exposures to individuals with similar symptoms of fatigue or fever. Timing/Duration: yesterday Severity: mild Associated Symptoms: fever (To moderate), malaise, No nausea, No vomiting, No abdominal pain, No shortness of breath, No cough, No chest pain Allergies/Adverse Reactions: azithromycin [From Zithromax] Allergy (Intermediate, Verified 06/20/23 10:34) ceftriaxone [From Rocephin] Allergy (Intermediate, Verified 06/20/23 10:34) Hx Tetanus, Diphtheria Vaccination/Date Given: Yes Hx Influenza Vaccination/Date Given: No Hx Pneumococcal Vaccination/Date Given: No Immunizations Up to Date: Yes Travel Risk - International Travel Have you traveled outside of the country in past 3 weeks: No - Coronavirus Screening Are you exhibiting any of the following symptoms?: No Close contact with a COVID-19 positive Pt in past 14-21 Days: No - Vaccine Status Have you recieved a Covid-19 vaccination: No - Review of Systems Constitutional: Fever Eyes: No Symptoms Ears, Nose, & Throat: No Symptoms Respiratory: No Symptoms Cardiac: No Symptoms Abdominal/Gastrointestinal: No Symptoms Genitourinary Symptoms: No Symptoms Musculoskeletal: No Symptoms Skin: No Symptoms Neurological: No Symptoms Psychological: No Symptoms Endocrine: No Symptoms Hematologic/Lymphatic: No Symptoms Immunological/Allergic: No Symptoms All Other Systems: Reviewed and Negative - Past Medical History Pertinent Past Medical History: Yes Neurological History: No Pertinent History ENT History: No Pertinent History, Other Cardiac History: No Pertinent History Respiratory History: Bronchitis Endocrine Medical History: No Pertinent History Musculoskeletal History: No Pertinent History GI Medical History: No Pertinent History History: No Pertinent History Psycho-Social History: No Pertinent History Male Reproductive Disorders: No Pertinent History Other Medical History: 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 both eardrums reconstructed. tumor removed to rt arm - Social History Smoking Status: Never smoker Exposure to second hand smoke: No Drug Use: none Patient Lives Alone: No - Nursing Vital Signs Nursing Vital Signs: Initial Vital Signs Temperature 99.7 F 06/20/23 10:35 Pulse Rate 111 H 06/20/23 10:35 Respiratory Rate 20 06/20/23 10:35 Blood Pressure 118/80 06/20/23 10:35 O2 Sat by Pulse Oximetry 97 06/20/23 10:35 Pain Scale Pain Intensity 0 - Physical Exam General Appearance: no apparent distress, alert Eye Exam: PERRL/EOMI, eyes nml inspection Ears, Nose, Throat Exam: normal ENT inspection, moist mucous membranes Neck Exam: normal inspection, non-tender, supple, full range of motion Respiratory Exam: normal breath sounds, lungs clear, airway intact, No chest tenderness, No respiratory distress Cardiovascular Exam: tachycardia Gastrointestinal/Abdomen Exam: soft, normal bowel sounds, tenderness (Only at the laparoscopic incision sites. The sites are intact without drainage and no evidence of infection.) Rectal Exam: not done Extremity Exam: normal inspection, normal range of motion, pelvis stable Neurologic Exam: alert, oriented x 3, cooperative, linen aide II-XII nml as tested, normal mood/affect, nml cerebellar function, nml station & gait, sensation nml Skin Exam: normal color, warm, dry Lymphatic Exam: No adenopathy SpO2 Interpretation: normal SpO2: 97 O2 Delivery: Room Air - Course Nursing assessment & vital signs reviewed: Yes Ordered Tests: Active Orders 24 hr Category Date Time Status IV Insertion STAT Care 06/20/23 11:09 Active ABDOMEN AND PELVIS W/0 CONTRAS [CT] Stat Exams 06/20/23 11:10 Completed CHEST 1 VIEW (PORTABLE) Stat Exams 06/20/23 11:10 Completed BLOOD CULTURE Stat Lab 06/20/23 11:10 Ordered CBC W DIFF Stat Lab 06/20/23 11:09 Completed CMP Stat Lab 06/20/23 11:18 Completed Lactic Acid Stat Lab 06/20/23 11:09 Completed MONO SCREEN Stat Lab 06/20/23 11:18 Completed UA W/RFX UR CULTURE Stat Lab 06/20/23 11:12 Completed Medication Summary Discontinued Medications Generic Name Dose Route Start Last Admin Trade Name Freq PRN Reason Stop Dose Admin Sodium Chloride 1,000 mls @ 999 mls/hr 06/20/23 11:09 06/20/23 12:20 Sodium Chloride 0.9% 1000 Ml IV 06/20/23 12:09 Infused .Q1H1M STA Infusion Sodium Chloride Confirm 06/20/23 11:14 Sodium Chloride 0.9% 1000 Ml Administered 06/20/23 11:15 Dose 1,000 mls @ ud .ROUTE .STK-MED ONE Levofloxacin 500 mg 06/20/23 12:34 06/20/23 13:00 Levofloxacin 500 Mg Tablet PO 06/20/23 12:35 500 mg STAT ONE Administration Levofloxacin Confirm 06/20/23 13:00 Levofloxacin 500 Mg Tablet Administered 06/20/23 13:01 Dose 500 mg .ROUTE .STK-MED ONE Lab/Rad Data: Laboratory Result Diagrams 06/20/23 11:09 06/20/23 11:18 Laboratory Results 06/20/23 06/20/23 06/20/23 Range/Units 11:40 11:18 11:18 WBC (4.0-10.5) x10^3/uL RBC (4.1-5.6) x10^6/uL Hgb (12.5-18.0) g/dL Hct (42-50) % MCV (78-100) fL MCH (26-32) pg MCHC (32-36) g/dL RDW (11.5-14.0) % Plt Count (150-450) x10^3/uL MPV (7.5-11.0) fL Gran % (36.0-66.0) % Immature Gran % (Auto) (0.00-0.4) % Nucleat RBC Rel Count (0.00-0.1) % Eos # (Auto) (0-0.5) x10^3/uL Immature Gran # (Auto) (0.00-0.03) x10^3u/L Absolute Lymphs (auto) (1.0-4.6) x10^3/uL Absolute Monos (auto) (0.0-1.3) x10^3/uL Absolute Nucleated RBC (0.00-0.01) x10^3u/L Lymphocytes % (24.0-44.0) % Monocytes % (0.0-12.0) % Eosinophils % (0.00-5.0) % Basophils % (0.0-0.4) % Absolute Granulocytes (1.4-6.9) x10^3/uL Basophils # (0-0.4) x10^3/uL Sodium 140 (137-145) mmol/L Potassium 3.8 (3.5-5.1) mmol/L Chloride 101 (98-107) mmol/L Carbon Dioxide 25 (22-30) mmol/L Anion Gap 17.0 H (5-15) MEQ/L BUN 11 (9-20) mg/dL Creatinine 0.76 (0.66-1.25) mg/dL Estimated GFR 131.1 ML/MIN Glucose 112 H (74-106) mg/dL Lactic Acid (0.4-2.0) Calcium 9.6 (8.4-10.2) mg/dL Total Bilirubin 1.20 (0.2-1.3) mg/dL AST 59 (17-59) U/L ALT 147 H (0-50) U/L Alkaline Phosphatase 104 (38-126) U/L Serum Total Protein 8.4 H (6.3-8.2) g/dL Albumin 4.4 (3.5-5.0) g/dL Urine Color (Yellow) Urine Appearance (Clear) Urine pH (4.6-8.0) Ur Specific [place] (1.005-1.030) Urine Protein (Negative) Urine Glucose (UA) (Negative) mg/dL Urine Ketones (Negative) Urine Blood (Negative) Urine Nitrite (Negative) Urine Bilirubin (Negative) Urine Urobilinogen (0.2) mg/dL Ur Leukocyte Esterase (Negative) U Hyaline Cast (Auto) (0-2) /LPF Urine Microscopic RBC (0-5) /HPF Urine Microscopic WBC (0-5) /HPF Ur Epithelial Cells (None Seen) /HPF Urine Bacteria (None Seen) /HPF Urine Culture Reflexed (NO) Monoscreen NEGATIVE (NEGATIVE) Influenza Type A Ag NEGATIVE (NEGATIVE) Influenza Type B Ag NEGATIVE (NEGATIVE) RSV (PCR) NEGATIVE (NEGATIVE) SARS-CoV-2 (PCR) NEGATIVE (NEGATIVE) 06/20/23 06/20/23 06/20/23 Range/Units 11:12 11:09 11:09 WBC 17.7 H (4.0-10.5) x10^3/uL RBC 4.89 (4.1-5.6) x10^6/uL Hgb 14.2 (12.5-18.0) g/dL Hct 42.3 (42-50) % MCV 86.5 (78-100) fL MCH 29.0 (26-32) pg MCHC 33.6 (32-36) g/dL RDW 12.0 (11.5-14.0) % Plt Count 353 (150-450) x10^3/uL MPV 10.6 (7.5-11.0) fL Gran % 83.2 H (36.0-66.0) % Immature Gran % (Auto) 0.6 H (0.00-0.4) % Nucleat RBC Rel Count 0.0 (0.00-0.1) % Eos # (Auto) 0.02 (0-0.5) x10^3/uL Immature Gran # (Auto) 0.10 H (0.00-0.03) x10^3u/L Absolute Lymphs (auto) 1.79 (1.0-4.6) x10^3/uL Absolute Monos (auto) 1.02 (0.0-1.3) x10^3/uL Absolute Nucleated RBC 0.00 (0.00-0.01) x10^3u/L Lymphocytes % 10.1 L (24.0-44.0) % Monocytes % 5.8 (0.0-12.0) % Eosinophils % 0.1 (0.00-5.0) % Basophils % 0.2 (0.0-0.4) % Absolute Granulocytes 14.74 H (1.4-6.9) x10^3/uL Basophils # 0.04 (0-0.4) x10^3/uL Sodium (137-145) mmol/L Potassium (3.5-5.1) mmol/L Chloride (98-107) mmol/L Carbon Dioxide (22-30) mmol/L Anion Gap (5-15) MEQ/L BUN (9-20) mg/dL Creatinine (0.66-1.25) mg/dL Estimated GFR ML/MIN Glucose (74-106) mg/dL Lactic Acid 1.1 (0.4-2.0) Calcium (8.4-10.2) mg/dL Total Bilirubin (0.2-1.3) mg/dL AST (17-59) U/L ALT (0-50) U/L Alkaline Phosphatase (38-126) U/L Serum Total Protein (6.3-8.2) g/dL Albumin (3.5-5.0) g/dL Urine Color Dark Yellow (Yellow) Urine Appearance Clear (Clear) Urine pH 7.0 (4.6-8.0) Ur Specific [place] 1.025 (1.005-1.030) Urine Protein Trace A (Negative) Urine Glucose (UA) Negative (Negative) mg/dL Urine Ketones Trace A (Negative) Urine Blood Negative (Negative) Urine Nitrite Negative (Negative) Urine Bilirubin Small A (Negative) Urine Urobilinogen 1.0 A (0.2) mg/dL Ur Leukocyte Esterase Negative (Negative) U Hyaline Cast (Auto) 3-5 A (0-2) /LPF Urine Microscopic RBC 0-2 (0-5) /HPF Urine Microscopic WBC 0-2 (0-5) /HPF Ur Epithelial Cells None Seen (None Seen) /HPF Urine Bacteria None Seen (None Seen) /HPF Urine Culture Reflexed NO (NO) Monoscreen (NEGATIVE) Influenza Type A Ag (NEGATIVE) Influenza Type B Ag (NEGATIVE) RSV (PCR) (NEGATIVE) SARS-CoV-2 (PCR) (NEGATIVE) - Progress Progress Note: 06/20/23 12:19 This patient medical issue is 1 of moderate complexity. Level complex in the workup performed is based on review the patient's past medical history, review the patient's medication list, review of patient drug allergy list, history present illness and physical findings on examination. The workup includes lorrie cement of intravenous line, infusion of normal saline solution, CBC, CMP, lactic acid level, amylase, lipase, chest x-ray, urinalysis, viral swabs, mono test, repeat CT scan of the abdomen and pelvis. 06/20/23 12:31 I interpreted the patient's laboratory data results. The patient has a leukocytosis of 17.7. We are awaiting the remainder of the laboratory results. Chest x-ray was interpreted by the radiologist and I reviewed the impression. There is new CT proven mid to lower lung airspace disease with tiny effusion. CT scan of the abdomen pelvis was interpreted by the radiologist and I reviewed the impression. There is new right mid to lower lung consolidating/nonconcerning airspace disease with tiny effusion present. There is new mild diffuse fecal stasis. Status post appendectomy with tiny free fluid present. There is stable nonobstructing right renal micro calculus. I discus sed these findings with the patient. Counseled pt/family regarding: lab results, diagnosis, need for follow-up, rad results Medical Desision Making - Independent Historian Additional History obtained from: Spouse - Diagnostic Testing Diagnostic test were ordered, analyzed, and reviewed by me: Yes Radiological Interpretation: Reviewed by me, Teleradiologist Report - Risk of complications The pt has a mod risk of morbidity or mortality based on: Need for prescription drug management - Departure Departure Disposition: Home Clinical Impression: Postoperative pneumonia Condition: Stable Critical Care Time: No Referrals: KATHY TALAMANTES, IZAIAH [Primary Care Provider] - Follow up/PCP as directed Additional Instructions: Take your medications as prescribed. Be up and ambulating and walking often. Follow your postoperative instructions. Prescriptions: Levofloxacin [Levaquin 500 MG Tablet] 500 mg PO DAILY #7 tablet
[2023-06-20] MEDS ORDERED: Sodium Chloride 0.9% 1000 ML 1,000 ML IV STA (11:09)
[2023-06-20] MEDS ORDERED: Sodium Chloride 0.9% 1000 ML 1,000 ML ONE (11:14)
[2023-06-20 11:18] LABS: Appearance Clear (Clear); Bilirubin Small (Negative); Blood Negative (Negative); Glucose, Urine Negative (Negative); Ketones Trace (Negative); Leukocyte Esterase Negative (Negative); Nitrite Negative (Negative); Protein,Urine Dip Trace (Negative); Specific Gravity 1.025 (1.005-1.030)
[2023-06-20 11:19] LABS: Absolute Neutrophil Ct (ANC) 14.74 x10^3/uL (1.4-6.9); BASOPHIL % 0.2 % (0.0-0.4); Basophil (Absolute #) 0.04 x10^3/uL (0-0.4); Eosinophil % 0.1 % (0.00-5.0); Eosinophil (Absolute #) 0.02 x10^3/uL (0-0.5); Hematocrit 42.3 % (42-50); Hemoglobin 14.2 g/dL (12.5-18.0); IMMATURE GRAN % 0.6 % (0.00-0.4); Lymphocyte (Absolute #) 1.79 x10^3/uL (1.0-4.6); Lymphocytes % 10.1 % (24.0-44.0); Mean Cell Volume 86.5 fL (78-100); Mean Corpuscular Hgb Concent. 33.6 g/dL (32-36); Mean Platelet Volume 10.6 fL (7.5-11.0); Monocyte (Absolute #) 1.02 x10^3/uL (0.0-1.3); Monocytes % 5.8 % (0.0-12.0); Neutrophil % 83.2 % (36.0-66.0); Platelet Count 353 x10^3/uL (150-450); Red Blood Count 4.89 x10^6/uL (4.1-5.6); White Blood Count 17.7 x10^3/uL (4.0-10.5)
[2023-06-20 11:23] LABS: ADD URINE CULTURE? NO (NO); Bacteria None Seen /HPF (None Seen); Epithelial Cells None Seen /HPF (None Seen); RBC 0-2 /HPF (0-5); WBC 0-2 /HPF (0-5)
[2023-06-20 11:26] LABS: ALBUMIN 4.4 g/dL (3.5-5.0); BILIRUBIN,TOTAL 1.2 mg/dL (0.2-1.3); Calcium 9.6 mg/dL (8.4-10.2); Creatinine 1 0.76 mg/dL (0.66-1.25); EST GLOMERULAR FILTRATION RATE 131.1 ML/MIN; Potassium 3.8 mmol/L (3.5-5.1); Total Protein 8.4 g/dL (6.3-8.2)
--- NOTE | 2023-06-20 11:50 | XRAY ---
Indication: Postoperative fever. Status post appendectomy. Comparison: November 17, 2016 Portable chest demonstrates new CT proven right mid to lower lung airspace disease with tiny effusion. Remaining heart, left lung, and bony thorax normal.
--- NOTE | 2023-06-20 11:50 | XRAY ---
Indication: Postoperative fever. Status post appendectomy 6 days. Multiple contiguous axial images obtained through the abdomen and pelvis without contrast. Comparison: June 12, 2023 Lung bases demonstrates diffuse right lower lobe consolidating/nonconsolidating airspace disease with small effusion. Minimal patchy airspace disease right middle lobe. Heart is not enlarged. Noncontrasted stomach and bowel loops appear nonobstructed. Status post appendectomy. Tiny fluid in right colic gutter presumed postoperative. No walled off fluid collection or free air. There is now mild diffuse scattered colonic fecal debris throughout. Stable nonobstructing right renal punctate calculus. Remaining liver, gallbladder, pancreas, spleen, adrenal glands, kidneys, ureters, bladder, and aorta are unremarkable for noncontrast exam. Impression: 1. New right mid to lower lung consolidating/nonconsolidating airspace disease with small effusion. 2. New mild diffuse fecal stasis. 3. Status post appendectomy with tiny free fluid. 4. Stable nonobstructing right renal micro-calculus.
[2023-06-20] MEDS ORDERED: Levofloxacin 500 MG Tablet PO ONE (12:34)
[2023-06-20 12:45] LABS: INFLUENZA A NEGATIVE (NEGATIVE); INFLUENZA B NEGATIVE (NEGATIVE); RESPIRATORY SYNCTIAL VIRUS NEGATIVE (NEGATIVE); SARS-CoV-2 Xpert Express NEGATIVE (NEGATIVE)
[2023-06-20] MEDS ORDERED: Levofloxacin 500 MG Tablet ONE (13:00)
[2023-06-20 13:43] VITALS: BP 127/76; PULSE 80; RESP 16; O2SAT 98
== END 2023-06-20 13:40 | disposition home or self-care (01) ==
LOC: ED 10:24
DX: J95.89 Other postprocedural complications and disorders of respiratory system, not elsewhere classified (principal); J18.9 Pneumonia, unspecified organism; R50.9 Fever, unspecified; R53.83 Other fatigue; Z28.310 Unvaccinated for COVID-19
CPT/HCPCS: 0241U; 36000; 36415; 71045; 74176; 80053; 81001; 83605; 85025; 86308; 87040; 96360; 99284; A9270-GY

== ENCOUNTER 2023-06-22 16:31 | Observation (INO) | payer BC ==
[2023-06-22] MEDS ORDERED: Sodium Chloride 0.9% 1000 ML 1,000 ML IV STA ×3 (16:47→18:11)
[2023-06-22] MEDS ORDERED: Hydromorphone 1 mg/ml Injection IV ONE (16:47)
[2023-06-22] MEDS ORDERED: Hydromorphone 1 mg/ml Injection ONE (17:16)
[2023-06-22] MEDS ORDERED: Sodium Chloride 0.9% 1000 ML 0 ML ONE (17:16)
[2023-06-22 17:31] LABS: Absolute Neutrophil Ct (ANC) 16.62 x10^3/uL (1.4-6.9); BASOPHIL % 0.1 % (0.0-0.4); Basophil (Absolute #) 0.03 x10^3/uL (0-0.4); Eosinophil (Absolute #) 0 x10^3/uL (0-0.5); IMMATURE GRAN # 0.17 x10^3u/L (0.00-0.03); IMMATURE GRAN % 0.8 % (0.00-0.4); Lymphocyte (Absolute #) 1.54 x10^3/uL (1.0-4.6); Lymphocytes % 7.7 % (24.0-44.0); Mean Cell Volume 87.4 fL (78-100); Mean Corpuscular Hemoglobin 29.1 pg (26-32); Mean Corpuscular Hgb Concent. 33.3 g/dL (32-36); Mean Platelet Volume 10.5 fL (7.5-11.0); Monocyte (Absolute #) 1.68 x10^3/uL (0.0-1.3); Monocytes % 8.4 % (0.0-12.0); Platelet Count 342 x10^3/uL (150-450); Red Blood Count 4.46 x10^6/uL (4.1-5.6); Red Cell Distribution Width 11.9 % (11.5-14.0)
[2023-06-22 17:31] LABS: Lactic Acid 1.5 (0.4-2.0); VBG HCO3- 27.6 meq/L (22-28); VBG HEMOGLOBIN 13.7; VBG O2 SATURATION 93.7 (95-100); VBG POTASSIUM 5.9 (3.5-5.1)
[2023-06-22 17:32] LABS: VBG CARBOXYHEMOGLOBIN 11.2 % T HGB (0.0-6.9)
[2023-06-22] MEDS ORDERED: Merrem 1 GM in Sodium Chloride 100ML MINI-BAG PLUS 100 ML IV ONE (17:32)
[2023-06-22 17:33] LABS: VBG pH 7.48 (7.32-7.42)
[2023-06-22] MEDS ORDERED: TYLENOL EXTRA STRENGTH 500 MG ONE (17:47)
[2023-06-22] MEDS ORDERED: Sodium Chloride 0.9% 1000 ML 1,000 ML ONE ×2 (17:47→19:17)
[2023-06-22] MEDS ORDERED: TYLENOL EXTRA STRENGTH 500 MG PO STA (17:48)
[2023-06-22 17:53] LABS: ADD URINE CULTURE? YES (NO); Appearance Clear (Clear); Bacteria Few /HPF (None Seen); Bilirubin Moderate (Negative); Blood Negative (Negative); Epithelial Cells Few /HPF (None Seen); Glucose, Urine Negative (Negative); Hyaline Casts NONE SEEN /LPF (0-2); Ketones 15 (Negative); Leukocyte Esterase Trace (Negative); Nitrite Positive (Negative); Protein,Urine Dip 100 (Negative); RBC 0-2 /HPF (0-5); Urobilinogen >=8.0 mg/dL (0.2)
[2023-06-22] MEDS ORDERED: Merrem IV ONE ×2 (17:55→22:02)
[2023-06-22] MEDS ORDERED: Sodium Chloride 100ML MINI-BAG PLUS 100 ML IV ONE ×2 (17:55→22:02)
[2023-06-22 18:02] LABS: ALBUMIN 4.2 g/dL (3.5-5.0); ANION GAP 16.6 MEQ/L (5-15); BILIRUBIN,TOTAL 3.5 mg/dL (0.2-1.3); Calcium 9.4 mg/dL (8.4-10.2); Creatinine 1 0.71 mg/dL (0.66-1.25); EST GLOMERULAR FILTRATION RATE 133.9 ML/MIN; PROCALCITONIN 0.1 ng/mL (0.030-0.080); Total Protein 8.4 g/dL (6.3-8.2)
--- NOTE | 2023-06-22 18:10 | ERPHSYRPT ---
- History of Present Illness Time Seen by Provider: 06/22/23 17:45 Source: patient, family Exam Limitations: no limitations Patient Subjective Stated Complaint: Weakness-fever Physician History: And is a 22-year-old white male who had acute appendicitis and a subsequent appendectomy approximately 2 to 3 weeks ago of the June 12 to be exact. He did fine and then after discharged was sent home and developed cough and fever he presented to the emergency room on Sunday of last week and was placed on Levaquin for pneumonia he has had fever chills and sweats continuing he has had some bloody stool tricked sputum and he has had nausea and vomiting. He also complains of extreme weakness. He does have an allergy to a Zithromax or Rocep hin which were given to him in the hospital. We contacted pharmacy and they recommended meropenem as a treatment for his pneumonia which clinically is continuing to not do well. He has some nausea and vomiting and weakness. Activities at Onset: none Severity of Dyspnea-Max: mild Severity of Dyspnea-Current: mild Possible Cause: illness exposure Modifying Factors: Improves With: coughing Associated Symptoms: cough, fever Allergies/Adverse Reactions: azithromycin [From Zithromax] Allergy (Intermediate, Verified 06/22/23 17:29) ceftriaxone [From Rocephin] Allergy (Intermediate, Verified 06/22/23 17:29) Hx Tetanus, Diphtheria Vaccination/Date Given: Yes Hx Influenza Vaccination/Date Given: No Hx Pneumococcal Vaccination/Date Given: No Immunizations Up to Date: Yes Travel Risk - International Travel Have you traveled outside of the country in past 3 weeks: No - Coronavirus Screening Are you exhibiting any of the following symptoms?: No Close contact with a COVID-19 positive Pt in past 14-21 Days: No - Vaccine Status Have you recieved a Covid-19 vaccination: No - Review of Systems Constitutional: Fever, Chills, Lethargy, Weakness, Weight Loss Eyes: No Symptoms Ears, Nose, & Throat: No Symptoms Respiratory: Cough, Dyspnea Cardiac: Chest Pain (Pleuritic), No Edema, No Syncope Abdominal/Gastrointestinal: Abdominal Pain, Nausea, Vomiting, No Diarrhea Genitourinary Symptoms: No Dysuria Musculoskeletal: No Back Pain, No Neck Pain Skin: No Rash Neurological: No Dizziness, No Focal Weakness, No Sensory Changes Psychological: No Symptoms Endocrine: No Symptoms All Other Systems: Reviewed and Negative - Past Medical History Pertinent Past Medical History: Yes Neurological History: No Pertinent History ENT History: No Pertinent History, Other Cardiac History: No Pertinent History Respiratory History: Bronchitis Endocrine Medical History: No Pertinent History Musculoskeletal History: No Pertinent History GI Medical History: No Pertinent History History: No Pertinent History Psycho-Social History: No Pertinent History Male Reproductive Disorders: No Pertinent History Other Medical History: 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 both eardrums reconstructed. tumor removed to rt arm - Social History Smoking Status: Never smoker Exposure to second hand smoke: No Drug Use: none Patient Lives Alone: No - Nursing Vital Signs Nursing Vital Signs: Initial Vital Signs Temperature 102.0 F 06/22/23 17:31 Pulse Rate 92 H 06/22/23 17:31 Respiratory Rate 18 06/22/23 17:31 Blood Pressure 138/86 06/22/23 17:31 O2 Sat by Pulse Oximetry 95 06/22/23 17:31 Pain Scale Pain Intensity 4 - Physical Exam General Appearance: mild distress, alert Eye Exam: PERRL/EOMI Neck Exam: normal inspection, supple Respiratory Exam: respiratory distress (Mild), diminished breath sounds, crackles/rales Cardiovascular/Chest Exam: normal heart sounds, regular rate/rhythm Abdominal/Gastrointestinal Exam: soft, No tenderness, No distention, No mass Extremity Exam: non-tender, normal range of motion, normal inspection, no calf tenderness, no pedal edema Neurologic Exam: alert, oriented x 3, cooperative, geospatial technician II-XII nml as tested, sensation nml, No motor deficits Skin Exam: normal color, warm, No dry SpO2 Interpretation: normal SpO2: 95 O2 Delivery: Room Air - Course Nursing assessment & vital signs reviewed: Yes - Radiology Exams Chest X-ray Interpretation: Interpreted by me, Reviewed by me Ordered Tests: Active Orders 24 hr Category Date Time Status CHEST 1 VIEW (PORTABLE) Stat Exams 06/22/23 17:13 Taken BLOOD CULTURE Stat Lab 06/22/23 17:25 Ordered CBC W DIFF Stat Lab 06/22/23 17:15 Completed CMP Stat Lab 06/22/23 17:15 Completed CULTURE,URINE Stat Lab 06/22/23 17:15 Received Lactic Acid Stat Lab 06/22/23 17:11 Completed PROCALCITONIN Stat Lab 06/22/23 17:15 Completed UA W/RFX UR CULTURE Stat Lab 06/22/23 17:15 Completed VENOUS BLOOD GAS Stat Lab 06/22/23 17:11 Completed Medication Summary Generic Name Dose Route Start Last Admin Trade Name Freq PRN Reason Stop Dose Admin Sodium Chloride 1,000 mls @ 999 mls/hr 06/22/23 17:48 06/22/23 17:50 Sodium Chloride 0.9% 1000 Ml IV 06/22/23 18:48 999 mls/hr .Q1H1M STA Administration Sodium Chloride 1,000 mls @ 999 mls/hr 06/22/23 18:11 Sodium Chloride 0.9% 1000 Ml IV 06/22/23 19:11 .Q1H1M STA Discontinued Medications Generic Name Dose Route Start Last Admin Trade Name Freq PRN Reason Stop Dose Admin Acetaminophen 1,000 mg 06/22/23 17:48 06/22/23 17:49 Acetaminophen 500 Mg Tablet PO 06/22/23 17:49 1,000 mg STAT STA Administration Acetaminophen Confirm 06/22/23 17:47 Acetaminophen 500 Mg Tablet Administered 06/22/23 17:48 Dose 1,000 mg .ROUTE .STK-MED ONE Hydromorphone HCl 1 mg 06/22/23 16:47 06/22/23 17:43 Hydromorphone 1 Mg/1ml Inj IV 06/22/23 16:48 Not Given STAT ONE Hydromorphone HCl Confirm 06/22/23 17:16 Hydromorphone 1 Mg/1ml Inj Administered 06/22/23 17:17 Dose 1 mg .ROUTE .STK-MED ONE Sodium Chloride 1,000 mls @ 999 mls/hr 06/22/23 16:47 06/22/23 17:44 Sodium Chloride 0.9% 1000 Ml IV 06/22/23 17:47 Not Given .Q1H1M STA Sodium Chloride Confirm 06/22/23 17:16 Sodium Chloride 0.9% 1000 Ml Administered 06/22/23 17:17 Dose 1,000 mls @ ud .ROUTE .STK-MED ONE Meropenem 1 gm/ Sodium 100 mls @ 200 mls/hr 06/22/23 17:32 06/22/23 17:58 Chloride IV 06/22/23 18:01 200 mls/hr STAT ONE Administration Sodium Chloride Confirm 06/22/23 17:47 Sodium Chloride 0.9% 1000 Ml Administered 06/22/23 17:48 Dose 1,000 mls @ ud .ROUTE .STK-MED ONE Sodium Chloride Confirm 06/22/23 17:55 Sodium Chloride 100ml Mini-Bag Plus Administered 06/22/23 17:56 Dose 100 mls @ ud IV .STK-MED ONE Meropenem Confirm 06/22/23 17:55 Meropenem 1 Gm Vial Administered 06/22/23 17:56 Dose 1 gm IV .STK-MED ONE Lab/Rad Data: Laboratory Result Diagrams 06/22/23 17:15 06/22/23 17:15 Laboratory Results 06/22/23 06/22/23 06/22/23 Range/Units 17:30 17:15 17:15 WBC (4.0-10.5) x10^3/uL RBC (4.1-5.6) x10^6/uL Hgb (12.5-18.0) g/dL Hct (42-50) % MCV (78-100) fL MCH (26-32) pg MCHC (32-36) g/dL RDW (11.5-14.0) % Plt Count (150-450) x10^3/uL MPV (7.5-11.0) fL Gran % (36.0-66.0) % Immature Gran % (Auto) (0.00-0.4) % Nucleat RBC Rel Count (0.00-0.1) % Eos # (Auto) (0-0.5) x10^3/uL Immature Gran # (Auto) (0.00-0.03) x10^3u/L Absolute Lymphs (auto) (1.0-4.6) x10^3/uL Absolute Monos (auto) (0.0-1.3) x10^3/uL Absolute Nucleated RBC (0.00-0.01) x10^3u/L Lymphocytes % (24.0-44.0) % Monocytes % (0.0-12.0) % Eosinophils % (0.00-5.0) % Basophils % (0.0-0.4) % Absolute Granulocytes (1.4-6.9) x10^3/uL Basophils # (0-0.4) x10^3/uL pO2/FiO2 Ratio % VBG pH (7.32-7.42) VBG pCO2 at Pat Temp (42-55) mm/Hg VBG pO2 at Pat Temp (25-40) mm/Hg VBG HCO3 (22-28) meq/L VBG O2 Sat (Ann) (95-100) VBG Base Excess (-2.0-2.0) VBG Hemoglobin VBG Carboxyhemoglobin (0.0-6.9) % T HGB POC Potassium (3.5-5.1) Sodium 137 (137-145) mmol/L Potassium 4.0 (3.5-5.1) mmol/L Chloride 100 (98-107) mmol/L Carbon Dioxide 25 (22-30) mmol/L Anion Gap 16.6 H (5-15) MEQ/L BUN 11 (9-20) mg/dL Creatinine 0.71 (0.66-1.25) mg/dL Estimated GFR 133.9 ML/MIN Glucose 117 H (74-106) mg/dL Lactic Acid (0.4-2.0) Calcium 9.4 (8.4-10.2) mg/dL Total Bilirubin 3.50 H (0.2-1.3) mg/dL AST 74 H (17-59) U/L ALT 125 H (0-50) U/L Alkaline Phosphatase 115 (38-126) U/L Serum Total Protein 8.4 H (6.3-8.2) g/dL Albumin 4.2 (3.5-5.0) g/dL Procalcitonin 0.100 H (0.030-0.080) ng/mL Urine Color Dark Yellow (Yellow) Urine Appearance Clear (Clear) Urine pH 6.0 (4.6-8.0) Ur Specific [place] 1.020 (1.005-1.030) Urine Protein 100 A (Negative) Urine Glucose (UA) Negative (Negative) mg/dL Urine Ketones 15 A (Negative) Urine Blood Negative (Negative) Urine Nitrite Positive A (Negative) Urine Bilirubin Moderate A (Negative) Urine Urobilinogen >=8.0 A (0.2) mg/dL Ur Leukocyte Esterase Trace A (Negative) U Hyaline Cast (Auto) NONE SEEN (0-2) /LPF Urine Microscopic RBC 0-2 (0-5) /HPF Urine Microscopic WBC 6-10 A (0-5) /HPF Ur Epithelial Cells Few (None Seen) /HPF Urine Bacteria Few A (None Seen) /HPF Urine Culture Reflexed YES (NO) Influenza Type A Ag NEGATIVE (NEGATIVE) Influenza Type B Ag NEGATIVE (NEGATIVE) RSV (PCR) NEGATIVE (NEGATIVE) SARS-CoV-2 (PCR) NEGATIVE (NEGATIVE) Slides for Path Review 06/22/23 06/22/23 Range/Units 17:15 17:11 WBC 20.0 H (4.0-10.5) x10^3/uL RBC 4.46 (4.1-5.6) x10^6/uL Hgb 13.0 (12.5-18.0) g/dL Hct 39.0 L (42-50) % MCV 87.4 (78-100) fL MCH 29.1 (26-32) pg MCHC 33.3 (32-36) g/dL RDW 11.9 (11.5-14.0) % Plt Count 342 (150-450) x10^3/uL MPV 10.5 (7.5-11.0) fL Gran % 83.0 H (36.0-66.0) % Immature Gran % (Auto) 0.8 H (0.00-0.4) % Nucleat RBC Rel Count 0.0 (0.00-0.1) % Eos # (Auto) 0 (0-0.5) x10^3/uL Immature Gran # (Auto) 0.17 H (0.00-0.03) x10^3u/L Absolute Lymphs (auto) 1.54 (1.0-4.6) x10^3/uL Absolute Monos (auto) 1.68 H (0.0-1.3) x10^3/uL Absolute Nucleated RBC 0.00 (0.00-0.01) x10^3u/L Lymphocytes % 7.7 L (24.0-44.0) % Monocytes % 8.4 (0.0-12.0) % Eosinophils % 0.0 (0.00-5.0) % Basophils % 0.1 (0.0-0.4) % Absolute Granulocytes 16.62 H (1.4-6.9) x10^3/uL Basophils # 0.03 (0-0.4) x10^3/uL pO2/FiO2 Ratio 21.0 % VBG pH 7.48 H (7.32-7.42) VBG pCO2 at Pat Temp 37 L (42-55) mm/Hg VBG pO2 at Pat Temp 61 H (25-40) mm/Hg VBG HCO3 27.6 (22-28) meq/L VBG O2 Sat (Ann) 93.7 L (95-100) VBG Base Excess 4.0 H (-2.0-2.0) VBG Hemoglobin 13.7 VBG Carboxyhemoglobin 11.2 H* (0.0-6.9) % T HGB POC Potassium 5.9 H (3.5-5.1) Sodium (137-145) mmol/L Potassium (3.5-5.1) mmol/L Chloride (98-107) mmol/L Carbon Dioxide (22-30) mmol/L Anion Gap (5-15) MEQ/L BUN (9-20) mg/dL Creatinine (0.66-1.25) mg/dL Estimated GFR ML/MIN Glucose (74-106) mg/dL Lactic Acid 1.5 (0.4-2.0) Calcium (8.4-10.2) mg/dL Total Bilirubin (0.2-1.3) mg/dL AST (17-59) U/L ALT (0-50) U/L Alkaline Phosphatase (38-126) U/L Serum Total Protein (6.3-8.2) g/dL Albumin (3.5-5.0) g/dL Procalcitonin (0.030-0.080) ng/mL Urine Color (Yellow) Urine Appearance (Clear) Urine pH (4.6-8.0) Ur Specific [place] (1.005-1.030) Urine Protein (Negative) Urine Glucose (UA) (Negative) mg/dL Urine Ketones (Negative) Urine Blood (Negative) Urine Nitrite (Negative) Urine Bilirubin (Negative) Urine Urobilinogen (0.2) mg/dL Ur Leukocyte Esterase (Negative) U Hyaline Cast (Auto) (0-2) /LPF Urine Microscopic RBC (0-5) /HPF Urine Microscopic WBC (0-5) /HPF Ur Epithelial Cells (None Seen) /HPF Urine Bacteria (None Seen) /HPF Urine Culture Reflexed (NO) Influenza Type A Ag (NEGATIVE) Influenza Type B Ag (NEGATIVE) RSV (PCR) (NEGATIVE) SARS-CoV-2 (PCR) (NEGATIVE) Slides for Path Review YES - Progress Progress: unchanged Air Movement: good Blood Culture(s) Obtained: Yes Antibiotics given: Yes Medical Desision Making - Independent Historian Additional History obtained from: Mother, Father - Discussion of managment Care discussed with:: hospitalist Reviewed:: Test results, Need for additional workup Agreed on:: Treatment plan, decision to admit Will see patient: in hospital - Diagnostic Testing Diagnostic test were ordered, analyzed, and reviewed by me: Yes Radiological Interpretation: Reviewed by me - Risk of complications The pt has a mod risk of morbidity or mortality based on: Need for prescription drug management - Departure Departure Disposition: Observation Clinical Impression: Right lower lobe pneumonia Condition: Fair Critical Care Time: No Referrals: KATHY TALAMANTES NP [Primary Care Provider] - Follow up/PCP as directed
[2023-06-22 18:17] LABS: Slide Review 1 YES
[2023-06-22 18:19] LABS: INFLUENZA A NEGATIVE (NEGATIVE); INFLUENZA B NEGATIVE (NEGATIVE); RESPIRATORY SYNCTIAL VIRUS NEGATIVE (NEGATIVE); SARS-CoV-2 Xpert Express NEGATIVE (NEGATIVE)
[2023-06-22] MEDS ORDERED: TYLENOL 325 MG PO PRN (21:49)
[2023-06-22] MEDS ORDERED: HEPARIN 5000 UNITS/0.5 ML (HIGH RISK MED) SQ SCH (22:00)
[2023-06-22] MEDS ORDERED: Lactated Ringers 1,000 ML IV SCH (22:00)
--- NOTE | 2023-06-22 22:01 | PCM.HP ---
History of Present Illness - Chief Complaint Chief Complaint: Pneumonia History of Present Illness: is a 22 year old male with no past medical issue came in with c/o SOB, cough with blood tinged sputum, and fever. He had acute appendicitis and had appendectomy on Jun 12, and the surgery was uneventful. he was DCed home but came into ER a few days later with fever, cough. Diagnosed with pneumonia and sent home on Levaquin. He now comes back with same symptoms - fever, chills, cough with blood tinged sputum, nausea, and vomiting. CXR shows right lower lobe infiltrate and CT abd/pelvic confirm same with no acute finding in abdomen. Pt is seen by me via telemedicine. He is resting, comfortable, on RA. His mother is at the bedside. He does not look septic on my exam - Review of Systems Constitutional: Fever, Chills, Weakness Eyes: No Symptoms Ears, Nose, & Throat: No Symptoms Respiratory: Cough, Short Of Breath Cardiac: No Symptoms Abdominal/Gastrointestinal: Nausea, Vomiting, Constipation Genitourinary Symptoms: No Symptoms Musculoskeletal: No Symptoms Skin: No Symptoms Neurological: No Symptoms Psychological: No Symptoms Endocrine: No Symptoms Hematologic/Lymphatic: No Symptoms Immunological/Allergic: No Symptoms Medications & Allergies Home Medications: Home Medication List Levofloxacin [Levaquin 500 MG Tablet] 500 mg PO DAILY #7 tablet 06/20/23 [Rx Confirmed 06/22/23] Allergies/Adverse Reactions: Allergies Allergy/AdvReac Type Severity Reaction Status Date / Time azithromycin [From Zithromax] Allergy Intermediate Verified 06/22/23 17:29 ceftriaxone [From Rocephin] Allergy Intermediate Verified 06/22/23 17:29 - Past Medical History Past Medical History: Yes Neurological History: No Pertinent History ENT History: No Pertinent History, Other Cardiac History: No Pertinent History Respiratory History: Bronchitis Endocrine Medical History: No Pertinent History Musculoskelatal History: No Pertinent History GI Medical History: No Pertinent History History: No Pertinent History Pyscho-Social History: No Pertinent History Male Reproductive Disorders: No Pertinent History Comment: 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 both eardrums reconstructed. tumor removed to rt arm - Social History Smoking Status: Never smoker Exposure to second hand smoke: No Alcohol: None Drug Use: none Significant Family History: no pertinent family hx - Physical Exam Vital Signs: Vital Signs - 24 hr Temp Pulse Resp BP BP Pulse Ox 06/22/23 20:37 99.5 F 84 18 130/76 96 06/22/23 19:37 88 26 H 126/78 95 06/22/23 19:30 85 22 94 L 06/22/23 19:20 87 24 95 06/22/23 19:10 88 20 94 L 06/22/23 19:00 83 22 95 06/22/23 18:46 95 06/22/23 17:31 102.0 F 92 H 18 138/86 95 General Appearance: no apparent distress Neurologic Exam: alert, oriented x 3, cooperative Eye Exam: PERRL/EOMI, eyes nml inspection Ears, Nose, Throat Exam: normal ENT inspection Neck Exam: normal inspection, supple, full range of motion Respiratory Exam: normal breath sounds, lungs clear Cardiovascular Exam: regular rate/rhythm, normal heart sounds Gastrointestinal/Abdomen Exam: soft, normal bowel sounds Rectal Exam: deferred Back Exam: normal inspection Extremity Exam: normal inspection, normal range of motion Skin Exam: normal color, warm, dry Wound Assessment: Skin/Wound Assessment Wound/Incision Assessment Start: 06/22/23 20:57 Text: Status: Active Freq: Q6H Protocol: Document 06/22/23 20:57 (Rec: 06/22/23 21:01 [id number]) Wound/Incision Assessment Right Abdomen Wound Assessment Admission Wound Type Incision Dressing Status Dry & Intact Drainage Amount None General Appearance Well Approximated Packing Type Gauze Pads Results - Labs Lab/Micro Results: Lab Results-Last 24 Hours 06/22/23 06/22/23 06/22/23 Range/Units 17:11 17:15 17:15 WBC 20.0 H (4.0-10.5) x10^3/uL RBC 4.46 (4.1-5.6) x10^6/uL Hgb 13.0 (12.5-18.0) g/dL Hct 39.0 L (42-50) % MCV 87.4 (78-100) fL MCH 29.1 (26-32) pg MCHC 33.3 (32-36) g/dL RDW 11.9 (11.5-14.0) % Plt Count 342 (150-450) x10^3/uL MPV 10.5 (7.5-11.0) fL Gran % 83.0 H (36.0-66.0) % Immature Gran % (Auto) 0.8 H (0.00-0.4) % Nucleat RBC Rel Count 0.0 (0.00-0.1) % Eos # (Auto) 0 (0-0.5) x10^3/uL Immature Gran # (Auto) 0.17 H (0.00-0.03) x10^3u/L Absolute Lymphs (auto) 1.54 (1.0-4.6) x10^3/uL Absolute Monos (auto) 1.68 H (0.0-1.3) x10^3/uL Absolute Nucleated RBC 0.00 (0.00-0.01) x10^3u/L Lymphocytes % 7.7 L (24.0-44.0) % Monocytes % 8.4 (0.0-12.0) % Eosinophils % 0.0 (0.00-5.0) % Basophils % 0.1 (0.0-0.4) % Absolute Granulocytes 16.62 H (1.4-6.9) x10^3/uL Basophils # 0.03 (0-0.4) x10^3/uL pO2/FiO2 Ratio 21.0 % VBG pH 7.48 H (7.32-7.42) VBG pCO2 at Pat Temp 37 L (42-55) mm/Hg VBG pO2 at Pat Temp 61 H (25-40) mm/Hg VBG HCO3 27.6 (22-28) meq/L VBG O2 Sat (Ann) 93.7 L (95-100) VBG Base Excess 4.0 H (-2.0-2.0) VBG Hemoglobin 13.7 VBG Carboxyhemoglobin 11.2 H* (0.0-6.9) % T HGB POC Potassium 5.9 H (3.5-5.1) Sodium 137 (137-145) mmol/L Potassium 4.0 (3.5-5.1) mmol/L Chloride 100 (98-107) mmol/L Carbon Dioxide 25 (22-30) mmol/L Anion Gap 16.6 H (5-15) MEQ/L BUN 11 (9-20) mg/dL Creatinine 0.71 (0.66-1.25) mg/dL Estimated GFR 133.9 ML/MIN Glucose 117 H (74-106) mg/dL Lactic Acid 1.5 (0.4-2.0) Calcium 9.4 (8.4-10.2) mg/dL Total Bilirubin 3.50 H (0.2-1.3) mg/dL AST 74 H (17-59) U/L ALT 125 H (0-50) U/L Alkaline Phosphatase 115 (38-126) U/L Serum Total Protein 8.4 H (6.3-8.2) g/dL Albumin 4.2 (3.5-5.0) g/dL Procalcitonin 0.100 H (0.030-0.080) ng/mL Urine Color (Yellow) Urine Appearance (Clear) Urine pH (4.6-8.0) Ur Specific [place] (1.005-1.030) Urine Protein (Negative) Urine Glucose (UA) (Negative) mg/dL Urine Ketones (Negative) Urine Blood (Negative) Urine Nitrite (Negative) Urine Bilirubin (Negative) Urine Urobilinogen (0.2) mg/dL Ur Leukocyte Esterase (Negative) U Hyaline Cast (Auto) (0-2) /LPF Urine Microscopic RBC (0-5) /HPF Urine Microscopic WBC (0-5) /HPF Ur Epithelial Cells (None Seen) /HPF Urine Bacteria (None Seen) /HPF Urine Culture Reflexed (NO) Influenza Type A Ag (NEGATIVE) Influenza Type B Ag (NEGATIVE) RSV (PCR) (NEGATIVE) SARS-CoV-2 (PCR) (NEGATIVE) Slides for Path Review YES 06/22/23 06/22/23 Range/Units 17:15 17:30 WBC (4.0-10.5) x10^3/uL RBC (4.1-5.6) x10^6/uL Hgb (12.5-18.0) g/dL Hct (42-50) % MCV (78-100) fL MCH (26-32) pg MCHC (32-36) g/dL RDW (11.5-14.0) % Plt Count (150-450) x10^3/uL MPV (7.5-11.0) fL Gran % (36.0-66.0) % Immature Gran % (Auto) (0.00-0.4) % Nucleat RBC Rel Count (0.00-0.1) % Eos # (Auto) (0-0.5) x10^3/uL Immature Gran # (Auto) (0.00-0.03) x10^3u/L Absolute Lymphs (auto) (1.0-4.6) x10^3/uL Absolute Monos (auto) (0.0-1.3) x10^3/uL Absolute Nucleated RBC (0.00-0.01) x10^3u/L Lymphocytes % (24.0-44.0) % Monocytes % (0.0-12.0) % Eosinophils % (0.00-5.0) % Basophils % (0.0-0.4) % Absolute Granulocytes (1.4-6.9) x10^3/uL Basophils # (0-0.4) x10^3/uL pO2/FiO2 Ratio % VBG pH (7.32-7.42) VBG pCO2 at Pat Temp (42-55) mm/Hg VBG pO2 at Pat Temp (25-40) mm/Hg VBG HCO3 (22-28) meq/L VBG O2 Sat (Ann) (95-100) VBG Base Excess (-2.0-2.0) VBG Hemoglobin VBG Carboxyhemoglobin (0.0-6.9) % T HGB POC Potassium (3.5-5.1) Sodium (137-145) mmol/L Potassium (3.5-5.1) mmol/L Chloride (98-107) mmol/L Carbon Dioxide (22-30) mmol/L Anion Gap (5-15) MEQ/L BUN (9-20) mg/dL Creatinine (0.66-1.25) mg/dL Estimated GFR ML/MIN Glucose (74-106) mg/dL Lactic Acid (0.4-2.0) Calcium (8.4-10.2) mg/dL Total Bilirubin (0.2-1.3) mg/dL AST (17-59) U/L ALT (0-50) U/L Alkaline Phosphatase (38-126) U/L Serum Total Protein (6.3-8.2) g/dL Albumin (3.5-5.0) g/dL Procalcitonin (0.030-0.080) ng/mL Urine Color Dark Yellow (Yellow) Urine Appearance Clear (Clear) Urine pH 6.0 (4.6-8.0) Ur Specific [place] 1.020 (1.005-1.030) Urine Protein 100 A (Negative) Urine Glucose (UA) Negative (Negative) mg/dL Urine Ketones 15 A (Negative) Urine Blood Negative (Negative) Urine Nitrite Positive A (Negative) Urine Bilirubin Moderate A (Negative) Urine Urobilinogen >=8.0 A (0.2) mg/dL Ur Leukocyte Esterase Trace A (Negative) U Hyaline Cast (Auto) NONE SEEN (0-2) /LPF Urine Microscopic RBC 0-2 (0-5) /HPF Urine Microscopic WBC 6-10 A (0-5) /HPF Ur Epithelial Cells Few (None Seen) /HPF Urine Bacteria Few A (None Seen) /HPF Urine Culture Reflexed YES (NO) Influenza Type A Ag NEGATIVE (NEGATIVE) Influenza Type B Ag NEGATIVE (NEGATIVE) RSV (PCR) NEGATIVE (NEGATIVE) SARS-CoV-2 (PCR) NEGATIVE (NEGATIVE) Slides for Path Review Microbiology 06/22/23 17:12 Blood Culture Gram Stain - Final Blood Not Reportable - Radiology Impressions Radiology Exams & Impressions: Radiology Procedures Category Date Time Status CHEST 1 VIEW (PORTABLE) Stat Exams 06/22/23 17:13 Taken CTA CHEST W AND/OR WO [CT] Routine Exams 06/22/23 21:48 Ordered - Other Procedures and Tests Respiratory Therapy 06/22/23 19:26 Incentive Spirometry UD Assessment/Plan (1) Right lower lobe pneumonia Current Visit: Yes Status: Acute Assessment & Plan: R lower lobe PNA - failed outpt oral ABX. Plan Merrem. CT chest with contrast to rule out abscess and or PE - given c/o SOB and hemoptysis. Sputum and blood culture sent. Code(s): J18.9 - PNEUMONIA, UNSPECIFIED ORGANISM (2) LFT elevation Current Visit: Yes Status: Acute Assessment & Plan: Bili, AST, ALT elevated. Likely related to recent appendicitis and surgery. Will monitor closely and trend levels. CT abd/pelvic was not remarkable for biliary/hepatic issue Code(s): R79.89 - OTHER SPECIFIED ABNORMAL FINDINGS OF BLOOD CHEMISTRY (3) Leukocytosis Current Visit: No Status: Resolved Assessment & Plan: WBC 20, fever, came in with cough and sputum, imaging studies confirming R lower lobe infiltrate. Allergic to Rocephin/Azithromycin. Ok to use Meropenem. Plan 1gm IV every 8hrs. Sputum and blood culture sent. Code(s): D72.829 - ELEVATED WHITE BLOOD CELL COUNT, UNSPECIFIED (4) Nephrolithiasis Current Visit: No Status: Acute Assessment & Plan: Incidental finding on CT abd/pelvic. No obstruction noted, right sided. UA noted. No dysuria, hematuria, flank pain Telemedicine Encounter - Telemedicine Encounter Telemedicine Encounter: The entirety of this encounter was performed via Telemedicine" The pt gave me verbal consent to have this telemedicine visit
[2023-06-22] MEDS: Merrem 1 GM in Sodium Chloride 100ML MINI-BAG PLUS 100 ML IV SCH (22:06)
[2023-06-22] MEDS ORDERED: TYLENOL 325 MG ONE (23:41)
[2023-06-23] MEDS ORDERED: MOTRIN 600 MG PO PRN ×2 (00:52→07:24)
[2023-06-23] MEDS: Merrem 1 GM in Sodium Chloride 100ML MINI-BAG PLUS 100 ML IV SCH ×3 (01:37→21:01)
[2023-06-23 05:37] LABS: Hematocrit 35.9 % (42-50); Hemoglobin 11.6 g/dL (12.5-18.0); Mean Cell Volume 88.4 fL (78-100); Mean Corpuscular Hemoglobin 28.6 pg (26-32); Mean Corpuscular Hgb Concent. 32.3 g/dL (32-36); Mean Platelet Volume 10.5 fL (7.5-11.0); Platelet Count 336 x10^3/uL (150-450); Red Blood Count 4.06 x10^6/uL (4.1-5.6); Red Cell Distribution Width 11.9 % (11.5-14.0); White Blood Count 15.6 x10^3/uL (4.0-10.5)
[2023-06-23 05:59] LABS: ALBUMIN 3.4 g/dL (3.5-5.0); ANION GAP 13.6 MEQ/L (5-15); BILIRUBIN,TOTAL 2.9 mg/dL (0.2-1.3); Calcium 8.9 mg/dL (8.4-10.2); Creatinine 1 0.67 mg/dL (0.66-1.25); EST GLOMERULAR FILTRATION RATE 136.2 ML/MIN; Potassium 3.9 mmol/L (3.5-5.1)
--- NOTE | 2023-06-23 07:20 | XRAY ---
CLINICAL HISTORY:SOB, hemoptysis, PNA, PE COMPARISON:CT abdomen and pelvis study dated 06/12/2023 was reviewed. TECHNIQUE:Contiguous axial CT images of the chest were acquired with the administration of intravenous contrast following PE protocol. Coronal and sagittal reconstructions were also obtained. FINDINGS: The timing of the contrast is not adequate for proper assessment of the segmental and subsegmental branches of the pulmonary artery, yet there is a hypodense filling defect on the right lower lobe pulmonary artery highly suggestive of embolus. The main pulmonary arteries and pulmonary trunk are patent and adequately filled. Currently detected mild to moderate right pleural effusion with fissural extension. There are confluent patchy airspace consolidations noted at the right lower lung lobe. The left lower lung lobe shows fewer and smaller patches of airspace consolidation. Bilateral upper lobes subpleural reticular densities. Average cardiac size with no obvious abnormalities. No pathologically enlarged hilar or mediastinal lymph nodes. Scanned osseous structures show no destructive changes. Scanned upper abdomen shows no obvious abnormalities. IMPRESSION: 1. Inadequate contrast timing yet there is high suspicion of a right lower lobar branch embolism. Further follow-up by CT angiography with proper contrast timing is advised. 2. Right lower lung lobe patchy airspace consolidation could be pulmonary infarction versus pneumonic consolidation. 3. Left lower lung lobe small consolidation patches. 4. Currently detected mild to moderate right pleural effusion with fissural extension. [facility] ER was called at [phone] at 06:10 AM [facility], 06/23/2023 and Rechel was informed about critical medical findings. Electronically Signed by: Cintia Hyde MD. (06/23/2023 07:16:19 EST)
--- NOTE | 2023-06-23 08:41 | XRAY ---
Indication: Pneumonia. Comparison: June 20, 2023 Portable chest demonstrates worsening moderate right mid to lower lung airspace disease with new moderate effusion. Remaining heart, left lung, and bony thorax normal.
[2023-06-23] MEDS: Zofran 4 MG/2 ML VIAL IV PRN ×2 (09:07→18:15)
[2023-06-23] MEDS: TYLENOL 325 MG PO PRN ×2 (09:07→18:15)
[2023-06-23] MEDS: ENOXAPARIN SODIUM SQ SCH ×2 (09:07→21:02)
[2023-06-23] MEDS ORDERED: Compazine 10 MG/2 ML IM PRN (10:26)
[2023-06-23] MEDS ORDERED: Hydromorphone 1 mg/ml Injection IV PRN (10:28)
--- NOTE | 2023-06-23 11:12 | PCM.NOTE ---
Date and Time: 06/23/23 1103 Subjective Assessment: is a 22 year old male with no past medical issue came in with c/o SOB, cough with blood tinged sputum, and fever. He had acute appendicitis and had appendectomy on Jun 12, and the surgery was uneventful. He was discharged home but came into ER a few days later with fever and cough. Diagnosed with pneumonia and sent home on Levaquin. He back to the ER with the same symptoms - fever, chills, cough with blood tinged sputum, nausea, and vomiting. CXR shows right lower lobe infiltrate and CT abd/pelvic confirm same with no acute finding in abdomen. CT of chest shows high suspicion of right lower lobar branch embolism. Right lower lung lobe patchy airspace consolidation could be pulmonary infarction versus pneumonic consolidation. Left lower lung lobe small consolidation patches. Mild to moderate right pleural effusion with fissural extension. We are unable to do a VQ scan or CT angiography at this facility. He is not eating or drinking well. Will continue IV fluids. He c/o constipation and stool softeners added. Narcotic pain medication added for pain. He is c/o N/V, zofran is not helping. Compazine added PRN. LFT's have improved. Continue Merrem for UTI and pneumonia. UC and BCx2 pending. Therapeutic Lovenox started for PE. Discussed with pt and mother plan of care in detail. - Review of Systems Constitutional: No Fever, No Chills Eyes: No Symptoms Ears, Nose, & Throat: No Symptoms Respiratory: Cough, Short Of Breath, Other (coughing up blood tinged sputum) Cardiac: No Chest Pain, No Edema, No Syncope Abdominal/Gastrointestinal: Nausea, Vomiting, Constipation, No Abdominal Pain, No Diarrhea Genitourinary Symptoms: No Dysuria Musculoskeletal: No Back Pain, No Neck Pain Skin: No Rash Neurological: No Dizziness, No Focal Weakness, No Sensory Changes Psychological: No Symptoms Endocrine: No Symptoms Hematologic/Lymphatic: No Symptoms Immunological/Allergic: No Symptoms Objective Exam General Appearance: mild distress, moderate distress, alert Neurologic Exam: alert, oriented x 3, cooperative, normal mood/affect, nml cerebellar function, sensation nml, No motor deficits Skin Exam: normal color, warm, dry Wound Assessment: Skin/Wound Assessment Wound/Incision Assessment Start: 06/22/23 20:57 Text: Status: Active Freq: Q6H Protocol: Document 06/23/23 08:00 RB (Rec: 06/23/23 08:34 RB [id number]) Wound/Incision Assessment Right Abdomen Wound Assessment Admission Wound Type Incision Dressing Status Dry & Intact Drainage Amount None General Appearance Well Approximated Packing Type Gauze Pads Comment Post op appendectomy CDI Wound Photo Photo Taken No Eye Exam: PERRL, EOMI, eyes nml inspection Ears, Nose, Throat Exam: normal ENT inspection, pharynx normal, moist mucous membranes Neck Exam: normal inspection, non-tender, supple, full range of motion Respiratory Exam: normal breath sounds, lungs clear, No respiratory distress Cardiovascular Exam: regular rate/rhythm, normal heart sounds Gastrointestinal/Abdomen Exam: soft, No tenderness, No mass Extremity Exam: normal inspection, normal range of motion Back Exam: normal inspection, normal range of motion, No CVA tenderness, No vertebral tenderness Male Genitalia Exam: deferred Rectal Exam: deferred OBJECTIVE DATA Vital Signs: Vital Signs - 24 hr Temp Pulse Resp BP BP Pulse Ox 06/23/23 07:05 97.8 F 86 17 126/69 94 L 06/23/23 06:42 89 16 94 L 06/23/23 04:00 99.0 F 90 17 116/64 95 06/23/23 00:59 102 F 06/22/23 23:44 100.0 F 99 H 18 132/73 96 06/22/23 22:13 102 H 16 95 06/22/23 20:37 99.5 F 84 18 130/76 96 06/22/23 19:37 88 26 H 126/78 95 06/22/23 19:30 85 22 94 L 06/22/23 19:20 87 24 95 06/22/23 19:10 88 20 94 L 06/22/23 19:00 83 22 95 06/22/23 18:46 95 06/22/23 17:31 102.0 F 92 H 18 138/86 95 Pain Assessment - Last Documented Pain Intensity 4 Pain Scale Used 0-10 Pain Scale Intake and Output: Intake & Output 06/20/23 06/21/23 06/22/23 06/23/23 11:59 11:59 11:59 11:59 Intake Total 575 Output Total 0 Balance 575 Weight 103.1 kg Lab Results: Lab Results-Last 24 Hours 06/22/23 06/22/23 06/22/23 Range/Units 17:11 17:15 17:15 WBC 20.0 H (4.0-10.5) x10^3/uL RBC 4.46 (4.1-5.6) x10^6/uL Hgb 13.0 (12.5-18.0) g/dL Hct 39.0 L (42-50) % MCV 87.4 (78-100) fL MCH 29.1 (26-32) pg MCHC 33.3 (32-36) g/dL RDW 11.9 (11.5-14.0) % Plt Count 342 (150-450) x10^3/uL MPV 10.5 (7.5-11.0) fL Gran % 83.0 H (36.0-66.0) % Immature Gran % (Auto) 0.8 H (0.00-0.4) % Nucleat RBC Rel Count 0.0 (0.00-0.1) % Eos # (Auto) 0 (0-0.5) x10^3/uL Immature Gran # (Auto) 0.17 H (0.00-0.03) x10^3u/L Absolute Lymphs (auto) 1.54 (1.0-4.6) x10^3/uL Absolute Monos (auto) 1.68 H (0.0-1.3) x10^3/uL Absolute Nucleated RBC 0.00 (0.00-0.01) x10^3u/L Lymphocytes % 7.7 L (24.0-44.0) % Monocytes % 8.4 (0.0-12.0) % Eosinophils % 0.0 (0.00-5.0) % Basophils % 0.1 (0.0-0.4) % Absolute Granulocytes 16.62 H (1.4-6.9) x10^3/uL Basophils # 0.03 (0-0.4) x10^3/uL D-Dimer (0.0-0.50) mg/L pO2/FiO2 Ratio 21.0 % VBG pH 7.48 H (7.32-7.42) VBG pCO2 at Pat Temp 37 L (42-55) mm/Hg VBG pO2 at Pat Temp 61 H (25-40) mm/Hg VBG HCO3 27.6 (22-28) meq/L VBG O2 Sat (Ann) 93.7 L (95-100) VBG Base Excess 4.0 H (-2.0-2.0) VBG Hemoglobin 13.7 VBG Carboxyhemoglobin 11.2 H* (0.0-6.9) % T HGB POC Potassium 5.9 H (3.5-5.1) Sodium 137 (137-145) mmol/L Potassium 4.0 (3.5-5.1) mmol/L Chloride 100 (98-107) mmol/L Carbon Dioxide 25 (22-30) mmol/L Anion Gap 16.6 H (5-15) MEQ/L BUN 11 (9-20) mg/dL Creatinine 0.71 (0.66-1.25) mg/dL Estimated GFR 133.9 ML/MIN Glucose 117 H (74-106) mg/dL Lactic Acid 1.5 (0.4-2.0) Calcium 9.4 (8.4-10.2) mg/dL Total Bilirubin 3.50 H (0.2-1.3) mg/dL AST 74 H (17-59) U/L ALT 125 H (0-50) U/L Alkaline Phosphatase 115 (38-126) U/L Serum Total Protein 8.4 H (6.3-8.2) g/dL Albumin 4.2 (3.5-5.0) g/dL Procalcitonin 0.100 H (0.030-0.080) ng/mL Urine Color (Yellow) Urine Appearance (Clear) Urine pH (4.6-8.0) Ur Specific Fitzwilliam (1.005-1.030) Urine Protein (Negative) Urine Glucose (UA) (Negative) mg/dL Urine Ketones (Negative) Urine Blood (Negative) Urine Nitrite (Negative) Urine Bilirubin (Negative) Urine Urobilinogen (0.2) mg/dL Ur Leukocyte Esterase (Negative) U Hyaline Cast (Auto) (0-2) /LPF Urine Microscopic RBC (0-5) /HPF Urine Microscopic WBC (0-5) /HPF Ur Epithelial Cells (None Seen) /HPF Urine Bacteria (None Seen) /HPF Urine Culture Reflexed (NO) Influenza Type A Ag (NEGATIVE) Influenza Type B Ag (NEGATIVE) RSV (PCR) (NEGATIVE) SARS-CoV-2 (PCR) (NEGATIVE) Slides for Path Review YES 06/22/23 06/22/23 06/23/23 Range/Units 17:15 17:30 05:10 WBC 15.6 H (4.0-10.5) x10^3/uL RBC 4.06 L (4.1-5.6) x10^6/uL Hgb 11.6 L (12.5-18.0) g/dL Hct 35.9 L (42-50) % MCV 88.4 (78-100) fL MCH 28.6 (26-32) pg MCHC 32.3 (32-36) g/dL RDW 11.9 (11.5-14.0) % Plt Count 336 (150-450) x10^3/uL MPV 10.5 (7.5-11.0) fL Gran % (36.0-66.0) % Immature Gran % (Auto) (0.00-0.4) % Nucleat RBC Rel Count (0.00-0.1) % Eos # (Auto) (0-0.5) x10^3/uL Immature Gran # (Auto) (0.00-0.03) x10^3u/L Absolute Lymphs (auto) (1.0-4.6) x10^3/uL Absolute Monos (auto) (0.0-1.3) x10^3/uL Absolute Nucleated RBC (0.00-0.01) x10^3u/L Lymphocytes % (24.0-44.0) % Monocytes % (0.0-12.0) % Eosinophils % (0.00-5.0) % Basophils % (0.0-0.4) % Absolute Granulocytes (1.4-6.9) x10^3/uL Basophils # (0-0.4) x10^3/uL D-Dimer (0.0-0.50) mg/L pO2/FiO2 Ratio % VBG pH (7.32-7.42) VBG pCO2 at Pat Temp (42-55) mm/Hg VBG pO2 at Pat Temp (25-40) mm/Hg VBG HCO3 (22-28) meq/L VBG O2 Sat (Ann) (95-100) VBG Base Excess (-2.0-2.0) VBG Hemoglobin VBG Carboxyhemoglobin (0.0-6.9) % T HGB POC Potassium (3.5-5.1) Sodium (137-145) mmol/L Potassium (3.5-5.1) mmol/L Chloride (98-107) mmol/L Carbon Dioxide (22-30) mmol/L Anion Gap (5-15) MEQ/L BUN (9-20) mg/dL Creatinine (0.66-1.25) mg/dL Estimated GFR ML/MIN Glucose (74-106) mg/dL Lactic Acid (0.4-2.0) Calcium (8.4-10.2) mg/dL Total Bilirubin (0.2-1.3) mg/dL AST (17-59) U/L ALT (0-50) U/L Alkaline Phosphatase (38-126) U/L Serum Total Protein (6.3-8.2) g/dL Albumin (3.5-5.0) g/dL Procalcitonin (0.030-0.080) ng/mL Urine Color Dark Yellow (Yellow) Urine Appearance Clear (Clear) Urine pH 6.0 (4.6-8.0) Ur Specific Fitzwilliam 1.020 (1.005-1.030) Urine Protein 100 A (Negative) Urine Glucose (UA) Negative (Negative) mg/dL Urine Ketones 15 A (Negative) Urine Blood Negative (Negative) Urine Nitrite Positive A (Negative) Urine Bilirubin Moderate A (Negative) Urine Urobilinogen >=8.0 A (0.2) mg/dL Ur Leukocyte Esterase Trace A (Negative) U Hyaline Cast (Auto) NONE SEEN (0-2) /LPF Urine Microscopic RBC 0-2 (0-5) /HPF Urine Microscopic WBC 6-10 A (0-5) /HPF Ur Epithelial Cells Few (None Seen) /HPF Urine Bacteria Few A (None Seen) /HPF Urine Culture Reflexed YES (NO) Influenza Type A Ag NEGATIVE (NEGATIVE) Influenza Type B Ag NEGATIVE (NEGATIVE) RSV (PCR) NEGATIVE (NEGATIVE) SARS-CoV-2 (PCR) NEGATIVE (NEGATIVE) Slides for Path Review 06/23/23 06/23/23 Range/Units 05:10 05:10 WBC (4.0-10.5) x10^3/uL RBC (4.1-5.6) x10^6/uL Hgb (12.5-18.0) g/dL Hct (42-50) % MCV (78-100) fL MCH (26-32) pg MCHC (32-36) g/dL RDW (11.5-14.0) % Plt Count (150-450) x10^3/uL MPV (7.5-11.0) fL Gran % (36.0-66.0) % Immature Gran % (Auto) (0.00-0.4) % Nucleat RBC Rel Count (0.00-0.1) % Eos # (Auto) (0-0.5) x10^3/uL Immature Gran # (Auto) (0.00-0.03) x10^3u/L Absolute Lymphs (auto) (1.0-4.6) x10^3/uL Absolute Monos (auto) (0.0-1.3) x10^3/uL Absolute Nucleated RBC (0.00-0.01) x10^3u/L Lymphocytes % (24.0-44.0) % Monocytes % (0.0-12.0) % Eosinophils % (0.00-5.0) % Basophils % (0.0-0.4) % Absolute Granulocytes (1.4-6.9) x10^3/uL Basophils # (0-0.4) x10^3/uL D-Dimer 2.98 H* (0.0-0.50) mg/L pO2/FiO2 Ratio % VBG pH (7.32-7.42) VBG pCO2 at Pat Temp (42-55) mm/Hg VBG pO2 at Pat Temp (25-40) mm/Hg VBG HCO3 (22-28) meq/L VBG O2 Sat (Ann) (95-100) VBG Base Excess (-2.0-2.0) VBG Hemoglobin VBG Carboxyhemoglobin (0.0-6.9) % T HGB POC Potassium (3.5-5.1) Sodium 136 L (137-145) mmol/L Potassium 3.9 (3.5-5.1) mmol/L Chloride 101 (98-107) mmol/L Carbon Dioxide 25 (22-30) mmol/L Anion Gap 13.6 (5-15) MEQ/L BUN 10 (9-20) mg/dL Creatinine 0.67 (0.66-1.25) mg/dL Estimated GFR 136.2 ML/MIN Glucose 105 (74-106) mg/dL Lactic Acid (0.4-2.0) Calcium 8.9 (8.4-10.2) mg/dL Total Bilirubin 2.90 H (0.2-1.3) mg/dL AST 48 (17-59) U/L ALT 95 H (0-50) U/L Alkaline Phosphatase 96 (38-126) U/L Serum Total Protein 7.0 (6.3-8.2) g/dL Albumin 3.4 L (3.5-5.0) g/dL Procalcitonin (0.030-0.080) ng/mL Urine Color (Yellow) Urine Appearance (Clear) Urine pH (4.6-8.0) Ur Specific Fitzwilliam (1.005-1.030) Urine Protein (Negative) Urine Glucose (UA) (Negative) mg/dL Urine Ketones (Negative) Urine Blood (Negative) Urine Nitrite (Negative) Urine Bilirubin (Negative) Urine Urobilinogen (0.2) mg/dL Ur Leukocyte Esterase (Negative) U Hyaline Cast (Auto) (0-2) /LPF Urine Microscopic RBC (0-5) /HPF Urine Microscopic WBC (0-5) /HPF Ur Epithelial Cells (None Seen) /HPF Urine Bacteria (None Seen) /HPF Urine Culture Reflexed (NO) Influenza Type A Ag (NEGATIVE) Influenza Type B Ag (NEGATIVE) RSV (PCR) (NEGATIVE) SARS-CoV-2 (PCR) (NEGATIVE) Slides for Path Review Radiology Exams: Radiology Procedures Category Date Time Status CHEST 1 VIEW (PORTABLE) Stat Exams 06/22/23 17:13 Completed CHEST WITH CONTRAST [CT] Routine Exams 06/22/23 21:48 Completed KUB Stat Exams 06/23/23 08:25 Ordered PULMONARY PERF VENTILATION [NUCMED] Stat Exams 06/23/23 08:19 Ordered Assessment/Plan (1) Pulmonary embolism and infarction Current Visit: Yes Status: Acute Assessment & Plan: - D-dimer 2.98 - CT chest: IMPRESSION: 1. Inadequate contrast timing yet there is high suspicion of a right lower lobar branch embolism. Further follow-up by CT angiography with proper contrast timing is advised. 2. Right lower lung lobe patchy airspace consolidation could be pulmonary infarction versus pneumonic consolidation. 3. Left lower lung lobe small consolidation patches. 4. Currently detected mild to moderate right pleural effusion with fissural extension. - Unable to do VQ scan or CT angiography at this facility - Continue Venous duplex of BLLE Sunday - unavailable on weekends - therapeutic Lovenox started - IS - Tylenol, Dilaudid IV for pain PRN Code(s): I26.99 - OTHER PULMONARY EMBOLISM WITHOUT ACUTE COR PULMONALE (2) Pneumonia Current Visit: Yes Status: Acute Assessment & Plan: - Chest XR 06/22/23 Portable chest demonstrates worsening moderate right mid to lower lung airspace disease with new moderate effusion. Remaining heart, left lung, and bony thorax normal - Merrem - IS, duonebs - PRN O2 Keep O2 > 92% - Tylenol for fever/ pain - BC X2 pending Code(s): J18.9 - PNEUMONIA, UNSPECIFIED ORGANISM (3) UTI (urinary tract infection) Current Visit: Yes Status: Acute Assessment & Plan: - Merrem - UC pending Code(s): N39.0 - URINARY TRACT INFECTION, SITE NOT SPECIFIED (4) Nausea & vomiting Current Visit: Yes Status: Acute Assessment & Plan: - Zofran, compazine PRN - Blood tinged sputum - LR @ 100 m/hr Code(s): R11.2 - NAUSEA WITH VOMITING, UNSPECIFIED (5) LFT elevation Current Visit: Yes Status: Acute Assessment & Plan: - AST normal - ALT 95- improved - trend - most likely r/t pneumonia Code(s): R79.89 - OTHER SPECIFIED ABNORMAL FINDINGS OF BLOOD CHEMISTRY (6) Leukocytosis Current Visit: No Status: Resolved Assessment & Plan: - improved with antibiotics 15.6 Code(s): D72.829 - ELEVATED WHITE BLOOD CELL COUNT, UNSPECIFIED (7) Constipation Current Visit: Yes Status: Acute Assessment & Plan: - KUB pending - CT abd on 06/30/23 Impression: 1. New right mid to lower lung consolidating/nonconsolidating airspace disease with small effusion. 2. New mild diffuse fecal stasis. 3. Status post appendectomy with tiny free fluid. 4. Stable nonobstructing right renal micro-calculus. - Colace added - Consider magnesium citrate VTE: Lovenox PPI: Protonix Next of Kin: Mother D/C plan: 1-2 days Code(s): K59.00 - CONSTIPATION, UNSPECIFIED
[2023-06-23] MEDS: Docusate Sodium 100 MG PO SCH ×2 (11:24→21:02)
[2023-06-23] MEDS: MOTRIN 600 MG PO PRN (12:36)
[2023-06-23] MEDS: PROTONIX 40 MG IV IV SCH (12:37)
[2023-06-23] MEDS: Lactated Ringers 1,000 ML IV SCH ×2 (12:37→21:01)
--- NOTE | 2023-06-23 13:27 | XRAY ---
CLINICAL HISTORY:constipation COMPARISON:06/12/2023 CT scan reviewed TECHNIQUE:CR KUB (1 view) AP view. FINDINGS: Nonspecific bowel gas pattern seen. No definite radio-opaque calcular shadows could be detected in the renal region and along the urinary tract. Unremarkable soft tissue structures. IMPRESSION: No significant abnormality seen in xray abdomen. Electronically Signed by: Cintia Hyde MD. (06/23/2023 13:23:17 EST)
[2023-06-23 13:38] LABS: A-aADO2 109; ABG HEMOGLOBIN 11.9; ABG POTASSIUM 3.7 (3.5-5.1); ABG SITE LEFT RADIAL; ALLEN TEST OK? YES; ARTERIAL BLOOD GAS BASE EXCESS 7.8 (-2.0-2.0); ARTERIAL BLOOD GAS FIO2 32 %; ARTERIAL BLOOD GAS PCO2 37 mmHg (35-45); ARTERIAL BLOOD GAS PO2 73 mmHg (75-100); ARTERIAL BLOOD GAS pH 7.53 (7.35-7.45); CARBOXYHEMOGLOBIN 1.6 % THgb (0.0-6.9); HCO3- 30.9 (22-28); HGB O2 SAT 94.4 g/dF (94-100); Methhemoglobin 1.1 % (1.4-1.5)
[2023-06-23] MEDS: DUONEB 0.5-3 MG/3 ml Neb IH PRN (13:55)
[2023-06-23] MEDS ORDERED: Mylicon 80MG PO PRN (19:08)
[2023-06-24] MEDS: Zofran 4 MG/2 ML VIAL IV PRN (02:23)
[2023-06-24] MEDS: TYLENOL 325 MG PO PRN ×2 (03:33→15:53)
[2023-06-24] MEDS: MOTRIN 600 MG PO PRN (03:56)
[2023-06-24] MEDS: Merrem 1 GM in Sodium Chloride 100ML MINI-BAG PLUS 100 ML IV SCH ×2 (05:04→14:19)
[2023-06-24 06:00] LABS: Hematocrit 34.5 % (42-50); Hemoglobin 11.3 g/dL (12.5-18.0); Mean Cell Volume 87.1 fL (78-100); Mean Corpuscular Hemoglobin 28.5 pg (26-32); Mean Corpuscular Hgb Concent. 32.8 g/dL (32-36); Mean Platelet Volume 10.3 fL (7.5-11.0); Platelet Count 379 x10^3/uL (150-450); Red Blood Count 3.96 x10^6/uL (4.1-5.6); Red Cell Distribution Width 12.1 % (11.5-14.0)
[2023-06-24 06:20] LABS: ALBUMIN 3.3 g/dL (3.5-5.0); ANION GAP 10.5 MEQ/L (5-15); BILIRUBIN,TOTAL 1.2 mg/dL (0.2-1.3); Calcium 8.8 mg/dL (8.4-10.2); Creatinine 1 0.61 mg/dL (0.66-1.25); EST GLOMERULAR FILTRATION RATE 140.2 ML/MIN; Potassium 3.7 mmol/L (3.5-5.1)
[2023-06-24] MEDS: PROTONIX 40 MG IV IV SCH (10:11)
[2023-06-24] MEDS: ENOXAPARIN SODIUM SQ SCH (10:11)
[2023-06-24] MEDS: Docusate Sodium 100 MG PO SCH (11:56)
--- NOTE | 2023-06-24 12:15 | PCM.NOTE ---
Date and Time: 06/24/23 1206 Subjective Assessment: 06/23/23 is a 22 year old male with no past medical issue came in with c/o SOB, cough with blood tinged sputum, and fever. He had acute appendicitis and had appendectomy on Jun 12, and the surgery was uneventful. He was discharged home but came into ER a few days later with fever and cough. Diagnosed with pneumonia and sent home on Levaquin. He back to the ER with the same symptoms - fever, chills, cough with blood tinged sputum, nausea, and vomiting. CXR shows right lower lobe infiltrate and CT abd/pelvic confirm same with no acute finding in abdomen. CT of chest shows high suspicion of right lower lobar branch embolism. Right lower lung lobe patchy airspace consolidation could be pulmonary infarction versus pneumonic consolidation. Left lower lung lobe small consolidation patches. Mild to moderate right pleural effusion with fissural extension. We are unable to do a VQ scan or CT angiography at this facility. He is not eating or drinking well. Will continue IV fluids. He c/o constipation and stool softeners added. Narcotic pain medication added for pain. He is c/o N/V, zofran is not helping. Compazine added PRN. LFT's have improved. Continue Merrem for UTI and pneumonia. UC and BCx2 pending. Therapeutic Lovenox started for PE. Discussed with pt and mother plan of care in detail. 06/24/23 Pt sitting up in a chair today. He was able to take a shower. Breathing has improved. He developed a fever yesterday afternoon and again overnight. Mother asking for repeat chest XR, ordered for tomorrow. She is also asking for a swallow eval as she feels he may have aspirated. He is eating and drinking fine without choking. Order placed for speech to eval. He still has not had a BM. KUB negative for constipation, positive for gas. Gax- X added, and miralax added. Pt admits he has not ate much since surgery as he just has not felt well. Aunt and mother in room with pt and discussed pt case in detail with them. They are requesting not to have the assembler 1st shift nurse back again tonight and housefellow made aware. He continues to have SOB, chest discomfort with deep breath, and nausea. He is on 2LNC @ 96%. Note for college provided as it is finals week and he needs an extension. - Review of Systems Constitutional: Fever, Chills, Weakness Eyes: No Symptoms Ears, Nose, & Throat: No Symptoms Respiratory: Cough, Short Of Breath Cardiac: Chest Pain, No Edema, No Syncope Abdominal/Gastrointestinal: Nausea, Constipation, Appetite Changes, No Abdominal Pain, No Vomiting, No Diarrhea Genitourinary Symptoms: No Dysuria Musculoskeletal: No Back Pain, No Neck Pain Skin: No Rash Neurological: No Dizziness, No Focal Weakness, No Sensory Changes Psychological: No Symptoms Endocrine: No Symptoms Hematologic/Lymphatic: No Symptoms Immunological/Allergic: No Symptoms Objective Exam General Appearance: no apparent distress, mild distress, alert Neurologic Exam: alert, oriented x 3, cooperative, normal mood/affect, nml cerebellar function, sensation nml, No motor deficits Skin Exam: normal color, warm, dry Wound Assessment: Skin/Wound Assessment Wound/Incision Assessment Start: 06/22/23 20:57 Text: Status: Active Freq: Q6H Protocol: Document 06/24/23 08:00 RB (Rec: 06/24/23 08:20 RB [id number]) Wound/Incision Assessment Right Abdomen Wound Assessment Shift Assessment Wound Type Incision Dressing Status Dry & Intact Drainage Amount None General Appearance Well Approximated Packing Type Gauze Pads Comment Post op appendectomy CDI Wound Photo Photo Taken No Eye Exam: PERRL, EOMI, eyes nml inspection Ears, Nose, Throat Exam: normal ENT inspection, pharynx normal, moist mucous membranes Neck Exam: normal inspection, non-tender, supple, full range of motion Respiratory Exam: crackles/rales, No respiratory distress Cardiovascular Exam: regular rate/rhythm, normal heart sounds Gastrointestinal/Abdomen Exam: soft, No tenderness, No mass Extremity Exam: normal inspection, normal range of motion Back Exam: normal inspection, normal range of motion, No CVA tenderness, No vertebral tenderness Male Genitalia Exam: deferred Rectal Exam: deferred OBJECTIVE DATA Vital Signs: Vital Signs - 24 hr Temp Pulse Resp BP Pulse Ox 06/24/23 07:20 82 24 96 06/24/23 07:06 98.3 F 80 16 131/79 96 06/24/23 04:07 100.1 F 111 H 30 H 122/67 95 06/24/23 03:55 102.4 F 06/23/23 23:54 99.4 F 109 H 20 110/58 90 L 06/23/23 20:26 97 H 26 H 97 06/23/23 19:31 99.8 F 98 H 37 H 123/73 95 06/23/23 16:00 98.8 F 84 19 125/67 96 06/23/23 14:10 96 H 20 95 06/23/23 13:25 94 L 06/23/23 12:50 95 06/23/23 12:30 91 L Pain Assessment - Last Documented Pain Intensity 0 Pain Scale Used 0-10 Pain Scale Intake and Output: Intake & Output 06/22/23 06/23/23 06/24/23 06/25/23 11:59 11:59 11:59 11:59 Intake Total 575 3480 Output Total 0 Balance 575 3480 Weight 103.1 kg Lab Results: Lab Results-Last 24 Hours 06/23/23 06/23/23 06/24/23 Range/Units 12:58 13:30 05:40 WBC 12.0 H (4.0-10.5) x10^3/uL RBC 3.96 L (4.1-5.6) x10^6/uL Hgb 11.3 L (12.5-18.0) g/dL Hct 34.5 L (42-50) % MCV 87.1 (78-100) fL MCH 28.5 (26-32) pg MCHC 32.8 (32-36) g/dL RDW 12.1 (11.5-14.0) % Plt Count 379 (150-450) x10^3/uL MPV 10.3 (7.5-11.0) fL Puncture Site LEFT RADIAL pCO2 37 (35-45) mmHg pO2 73 L (75-100) mmHg Base Excess 7.8 H (-2.0-2.0) O2 Saturation 94.4 (94-100) g/dF ABG pH 7.53 H (7.35-7.45) ABG HCO3 30.9 H* (22-28) ABG O2 Sat (Measured) 97.0 (95-100) % Sal Test YES A-a Gradient 109 a/A Ratio 0.40 Hemoglobin 11.9 Carboxyhemoglobin 1.6 (0.0-6.9) % THgb Methemoglobin 1.1 L (1.4-1.5) % Potassium 3.7 (3.5-5.1) Temperature 37.0 C POC O2 Flow Rate 32 % Sodium (137-145) mmol/L Chloride (98-107) mmol/L Carbon Dioxide (22-30) mmol/L Anion Gap (5-15) MEQ/L BUN (9-20) mg/dL Creatinine (0.66-1.25) mg/dL Estimated GFR ML/MIN Glucose (74-106) mg/dL Lactic Acid 1.2 (0.4-2.0) Calcium (8.4-10.2) mg/dL Total Bilirubin (0.2-1.3) mg/dL AST (17-59) U/L ALT (0-50) U/L Alkaline Phosphatase (38-126) U/L Serum Total Protein (6.3-8.2) g/dL Albumin (3.5-5.0) g/dL 06/24/23 Range/Units 05:40 WBC (4.0-10.5) x10^3/uL RBC (4.1-5.6) x10^6/uL Hgb (12.5-18.0) g/dL Hct (42-50) % MCV (78-100) fL MCH (26-32) pg MCHC (32-36) g/dL RDW (11.5-14.0) % Plt Count (150-450) x10^3/uL MPV (7.5-11.0) fL Puncture Site pCO2 (35-45) mmHg pO2 (75-100) mmHg Base Excess (-2.0-2.0) O2 Saturation (94-100) g/dF ABG pH (7.35-7.45) ABG HCO3 (22-28) ABG O2 Sat (Measured) (95-100) % Sal Test A-a Gradient a/A Ratio Hemoglobin Carboxyhemoglobin (0.0-6.9) % THgb Methemoglobin (1.4-1.5) % Potassium 3.7 (3.5-5.1) Temperature C POC O2 Flow Rate % Sodium 137 (137-145) mmol/L Chloride 102 (98-107) mmol/L Carbon Dioxide 28 (22-30) mmol/L Anion Gap 10.5 (5-15) MEQ/L BUN 7 L (9-20) mg/dL Creatinine 0.61 L (0.66-1.25) mg/dL Estimated GFR 140.2 ML/MIN Glucose 126 H (74-106) mg/dL Lactic Acid (0.4-2.0) Calcium 8.8 (8.4-10.2) mg/dL Total Bilirubin 1.20 (0.2-1.3) mg/dL AST 76 H (17-59) U/L ALT 126 H (0-50) U/L Alkaline Phosphatase 105 (38-126) U/L Serum Total Protein 7.0 (6.3-8.2) g/dL Albumin 3.3 L (3.5-5.0) g/dL Radiology Exams: Radiology Procedures Category Date Time Status CHEST 1 VIEW (PORTABLE) Stat Exams 06/22/23 17:13 Completed CHEST 2 VIEWS (PA AND LAT) Routine Exams 06/25/23 07:00 Ordered CHEST WITH CONTRAST [CT] Routine Exams 06/22/23 21:48 Completed ECHO W/2D AND DOPPLER [US] Routine Exams 06/24/23 11:57 Ordered KUB Stat Exams 06/23/23 08:25 Completed PULMONARY PERF VENTILATION [NUCMED] Stat Exams 06/25/23 13:00 Ordered VENOUS BILATERAL EXTREMITY [US] Routine Exams 06/24/23 11:56 Ordered Assessment/Plan (1) Pulmonary embolism and infarction Current Visit: Yes Status: Acute Code(s): I26.99 - OTHER PULMONARY EMBOLISM WITHOUT ACUTE COR PULMONALE (2) Pneumonia Current Visit: Yes Status: Acute Code(s): J18.9 - PNEUMONIA, UNSPECIFIED ORGANISM (3) UTI (urinary tract infection) Current Visit: Yes Status: Acute Code(s): N39.0 - URINARY TRACT INFECTION, SITE NOT SPECIFIED (4) Nausea & vomiting Current Visit: Yes Status: Acute Code(s): R11.2 - NAUSEA WITH VOMITING, UNSPECIFIED (5) LFT elevation Current Visit: Yes Status: Acute Code(s): R79.89 - OTHER SPECIFIED ABNORMAL FINDINGS OF BLOOD CHEMISTRY (6) Leukocytosis Current Visit: No Status: Resolved Code(s): D72.829 - ELEVATED WHITE BLOOD CELL COUNT, UNSPECIFIED (7) Constipation Current Visit: Yes Status: Acute Assessment & Plan: (1) Pulmonary embolism and infarction Current Visit: Yes Status: Acute Assessment & Plan: - 2:2 recent appy surgery - D-dimer 2.98 - CT chest: IMPRESSION: 1. Inadequate contrast timing yet there is high suspicion of a right lower lobar branch embolism. Further follow-up by CT angiography with proper contrast timing is advised. 2. Right lower lung lobe patchy airspace consolidation could be pulmonary infarction versus pneumonic consolidation. 3. Left lower lung lobe small consolidation patches. 4. Currently detected mild to moderate right pleural effusion with fissural extension. - Unable to do VQ scan or CT angiography at this facility - Continue Venous duplex of BLLE Sunday - unavailable on weekends - therapeutic Lovenox started - IS - Tylenol, Dilaudid IV for pain PRN 06/24 - Fever may be r/t infarction and pneumonia - Pulmonology consult per mother request - 2LNC @ 96% - Echo and US of BLLE tomorrow. - Pt eval tomorrow. - change Lovenox to Eliquis therapeutic dosing Code(s): I26.99 - OTHER PULMONARY EMBOLISM WITHOUT ACUTE COR PULMONALE (2) Pneumonia Current Visit: Yes Status: Acute Assessment & Plan: - Chest XR 06/22/23 Portable chest demonstrates worsening moderate right mid to lower lung airspace disease with new moderate effusion. Remaining heart, left lung, and bony thorax normal - Merrem - IS, duonebs - PRN O2 Keep O2 > 92% - Tylenol for fever/ pain - BC X2 pending 06/24 - BC negative X1 - the other was cancelled - 2LNC @ 96% - Pulmonology consult per mother request - WBC improved 12 - ST consult per mother request for possible aspiration - repeat chest XR ordered for AM Code(s): J18.9 - PNEUMONIA, UNSPECIFIED ORGANISM (3) UTI (urinary tract infection) Current Visit: Yes Status: Acute Assessment & Plan: - Merrem - UC pending 06/24 - UC negative - No UTI Code(s): N39.0 - URINARY TRACT INFECTION, SITE NOT SPECIFIED (4) Nausea & vomiting Current Visit: Yes Status: Acute Assessment & Plan: - Zofran, compazine PRN - Blood tinged sputum - LR @ 100 m/hr Code(s): R11.2 - NAUSEA WITH VOMITING, UNSPECIFIED (5) LFT elevation Current Visit: Yes Status: Acute Assessment & Plan: - AST normal - ALT 95- improved - trend - most likely r/t pneumonia 06/24 - AST 76, ALT 126- increased- consider US if continues to rise - trend Code(s): R79.89 - OTHER SPECIFIED ABNORMAL FINDINGS OF BLOOD CHEMISTRY (6) Leukocytosis Current Visit: No Status: Resolved Assessment & Plan: - improved with antibiotics 15.6 10 - improved WBC 12 Code(s): D72.829 - ELEVATED WHITE BLOOD CELL COUNT, UNSPECIFIED (7) Constipation Current Visit: Yes Status: Acute Assessment & Plan: - KUB: negative for constipation, + gas - CT abd on 06/30/23 Impression: 1. New right mid to lower lung consolidating/nonconsolidating airspace disease with small effusion. 2. New mild diffuse fecal stasis. 3. Status post appendectomy with tiny free fluid. 4. Stable nonobstructing right renal micro-calculus. - Colace, miralax added - Gas-X added - Consider magnesium citrate VTE: Lovenox PPI: Protonix Next of Kin: Mother D/C plan: 1-2 days Code(s): K59.00 - CONSTIPATION, UNSPECIFIED
[2023-06-24] MEDS ORDERED: Miralax Powder 17GM PACKET PO SCH (13:00)
[2023-06-24] MEDS: DUONEB 0.5-3 MG/3 ml Neb IH PRN (13:11)
[2023-06-24] MEDS: Lactated Ringers 1,000 ML IV SCH ×2 (14:15→18:37)
[2023-06-24 16:04] VITALS: O2SAT 94
--- NOTE | 2023-06-24 18:41 | PCM.DS ---
Discharge Summary Date of Admission: 06/22/23 19:38 Date of Discharge: 06/24/2023 Admitting Physician: SONALI COLBERT DO Consults: Consults on Case 06/24/23 11:52 Consult Pulmonology ROUTINE Primary Care Provider: KATHY TALAMANTES Allergies Allergies azithromycin [From Zithromax] Allergy (Intermediate, Verified 06/22/23 17:29) ceftriaxone [From Rocephin] Allergy (Intermediate, Verified 06/22/23 17:29) Hospital Summary - Hospital Course Hospital Course: This patient was admitted with pleuritic chest pain, dyspnea, cough and fever. He had a recent appendectomy. He was found to have pulmonary embolus with probable pulmonary infarct. He was also felt to have bacterial pneumonia. He was started on Meropenam in ER and this was continued. He was given therapeutic dose of Lovenox, then changed to Eliquis on 06/24. There was a question of UTI on admission but this was ruled out. The patient had some improvement with decreased pain. He is oxygenating well on 2 L oxygen. His VS are stable. On 06/24 pulmonary consult was obtained. Pulmonary recommended transfer to a higher level of care. The patient is being dismissed so he can transfer to [facility] for treatment of these problems. The patient is dismissed on 06/24/23. - Vitals & Intake/Output Vital Signs: Vital Signs Temperature 101.2 F 06/24/23 15:59 Pulse Rate 100 H 06/24/23 15:59 Respiratory Rate 33 H 06/24/23 15:59 Blood Pressure 122/69 06/24/23 15:59 O2 Sat by Pulse Oximetry 94 L 06/24/23 15:59 Intake & Output: Intake & Output 06/22/23 06/23/23 06/24/23 06/25/23 11:59 11:59 11:59 11:59 Intake Total 575 3480 2011 Output Total 0 Balance 575 3480 2011 Weight 103.1 kg - Lab Result Diagrams: 06/24/23 05:40 06/24/23 05:40 Lab Results-Last 24 Hrs: Lab Results-Last 24 Hours 06/24/23 06/24/23 Range/Units 05:40 05:40 WBC 12.0 H (4.0-10.5) x10^3/uL RBC 3.96 L (4.1-5.6) x10^6/uL Hgb 11.3 L (12.5-18.0) g/dL Hct 34.5 L (42-50) % MCV 87.1 (78-100) fL MCH 28.5 (26-32) pg MCHC 32.8 (32-36) g/dL RDW 12.1 (11.5-14.0) % Plt Count 379 (150-450) x10^3/uL MPV 10.3 (7.5-11.0) fL Sodium 137 (137-145) mmol/L Potassium 3.7 (3.5-5.1) mmol/L Chloride 102 (98-107) mmol/L Carbon Dioxide 28 (22-30) mmol/L Anion Gap 10.5 (5-15) MEQ/L BUN 7 L (9-20) mg/dL Creatinine 0.61 L (0.66-1.25) mg/dL Estimated GFR 140.2 ML/MIN Glucose 126 H (74-106) mg/dL Calcium 8.8 (8.4-10.2) mg/dL Total Bilirubin 1.20 (0.2-1.3) mg/dL AST 76 H (17-59) U/L ALT 126 H (0-50) U/L Alkaline Phosphatase 105 (38-126) U/L Serum Total Protein 7.0 (6.3-8.2) g/dL Albumin 3.3 L (3.5-5.0) g/dL Micro Results-Entire Visit: Microbiology 06/22/23 17:25 Blood Culture - Preliminary Blood 06/22/23 17:15 Urine Culture - Final Clean Catch Midstream NO GROWTH - Radiology Exams Ordered Rad Exams-Entire Visit: Radiology Procedures Category Date Time Status CHEST 2 VIEWS (PA AND LAT) Routine Exams 06/25/23 07:00 Ordered CHEST WITH CONTRAST [CT] Routine Exams 06/22/23 21:48 Completed ECHO W/2D AND DOPPLER [US] Routine Exams 06/24/23 11:57 Ordered KUB Stat Exams 06/23/23 08:25 Completed PULMONARY PERF VENTILATION [NUCMED] Stat Exams 06/25/23 13:00 Ordered VENOUS BILATERAL EXTREMITY [US] Routine Exams 06/24/23 11:56 Ordered - Procedures and Test Procedures and Tests throughout Hospitalization: Therapy Orders & Screens 06/22/23 19:26 Incentive Spirometry UD Comment: Diagnosis: Pneumonia 06/22/23 22:08 Respiratory Therapy Assessment DAILY Comment: Diagnosis: Pneumonia 06/23/23 11:20 Oxygen Nasal Cannula 2 lpm Comment: PRN Diagnosis: Pneumonia 06/24/23 11:49 Speech Therapy Eval & Treat [ST Eval & Treat (MD Order)] .as ordered Comment: Physician Instructions: Reason For Exam: Evaluate: Yes Treat: Yes Reason for Eval: Mother asking for swallow eval as pt has pneumonia and she thinks he may has aspiration pneumonia. He is eating and drinking fine- however she is requesting this. I will let you discuss and eval if needed. Diagnosis: Pneumonia 06/24/23 11:54 PT Eval & Treat ( Order) ONCE Reason for Eval:: weakness r/t PE and Pneumonia Diagnosis: Pneumonia Discharge Exam General Appearance: mild distress Neurologic Exam: alert, oriented x 3, cooperative, manager wound II-XII nml as tested Eye Exam: PERRL, EOMI, eyes nml inspection Ears, Nose, Throat Exam: normal ENT inspection Neck Exam: normal inspection, non-tender, supple, full range of motion Respiratory Exam: respiratory distress, crackles/rales Cardiovascular Exam: regular rate/rhythm, normal heart sounds, normal peripheral pulses Gastrointestinal/Abdomen Exam: soft, normal bowel sounds, hepatomegaly, No tenderness, No distention, No mass Rectal Exam: deferred Back Exam: normal inspection Extremity Exam: normal inspection Skin Exam: normal color Wound Assessment: Skin/Wound Assessment Wound/Incision Assessment Start: 06/22/23 20:57 Text: Status: Active Freq: Q6H Protocol: Document 06/24/23 14:00 RB (Rec: 06/24/23 15:28 RB [id number]) Wound/Incision Assessment Right Abdomen Wound Assessment Shift Assessment Wound Type Incision Dressing Status Dry & Intact Drainage Amount None General Appearance Well Approximated Packing Type Gauze Pads Comment Post op appendectomy CDI Wound Photo Photo Taken No Lymphatic Exam: No adenopathy Final Diagnosis/Problem List - Final Discharge Diagnosis/Problem (1) Constipation Current Visit: Yes Status: Acute Code(s): K59.00 - CONSTIPATION, UNSPECIFIED (2) LFT elevation Current Visit: Yes Status: Acute Code(s): R79.89 - OTHER SPECIFIED ABNORMAL FINDINGS OF BLOOD CHEMISTRY (3) Nausea & vomiting Current Visit: Yes Status: Acute Code(s): R11.2 - NAUSEA WITH VOMITING, UN SPECIFIED (4) Pneumonia Current Visit: Yes Status: Acute Code(s): J18.9 - PNEUMONIA, UNSPECIFIED ORGANISM (5) Pulmonary embolism and infarction Current Visit: Yes Status: Acute Code(s): I26.99 - OTHER PULMONARY EMBOLISM WITHOUT ACUTE COR PULMONALE (6) Leukocytosis Current Visit: No Status: Resolved Code(s): D72.829 - ELEVATED WHITE BLOOD CELL COUNT, UNSPECIFIED Telemedicine Encounter - Telemedicine Encounter Telemedicine Encounter: The entirety of this encounter was performed via Telemedicine" - Discharge Disposition: DC TO [facility] Condition: Fair Prescriptions: New Albuterol/Ipratropium 3ml Neb* [DUONEB 0.5-3 MG/3 ml Neb] 3 ml IH Q6HPRN PRN PRN Reason: Shortness Of Breath/Wheezing Apixaban [Eliquis 2.5 mg Tablet] 10 mg PO BID tablet Hydromorphone 1 mg/1Ml Inj [Hydromorphone 1 mg/ml Injection] 1 mg IV Q6H PRN PRN PRN Reason: Pain Meropenem [Merrem] 1 gm IV Q8HT Acetaminophen 325 mg [Tylenol 325 mg] 650 mg PO Q4H PRN PRN tablet PRN Reason: Pain, Fever, Headache Discontinued Levofloxacin [Levaquin 500 MG Tablet] 500 mg PO DAILY #7 tablet Follow up with: KATHY TALAMANTES NP [Primary Care Provider] - Forms: Work/School Release Form
[2023-06-24 19:48] VITALS: BP 121/64; PULSE 80; RESP 25; TEMP 99.2
[2023-06-24] MEDS ORDERED: ELIQUIS 2.5 MG TABLET PO SCH (22:00)
== END 2023-06-24 20:02 | disposition short-term general hospital (02) ==
LOC: ED 16:31 → MED SURG 19:38
PROVIDERS: ADMIT Internal Medicine; ATTEND Internal Medicine
DX: J18.9 Pneumonia, unspecified organism (principal); I26.99 Other pulmonary embolism without acute cor pulmonale; J96.01 Acute respiratory failure with hypoxia; K59.00 Constipation, unspecified; N39.0 Urinary tract infection, site not specified; R79.89 Other specified abnormal findings of blood chemistry; R11.2 Nausea with vomiting, unspecified; Z98.890 Other specified postprocedural states; D72.829 Elevated white blood cell count, unspecified; N20.0 Calculus of kidney; Z79.899 Other long term (current) drug therapy; Z20.828 Contact with and (suspected) exposure to other viral communicable diseases
CPT/HCPCS: 0241U; 36415; 36600; 71045; 71260; 74018; 80053; 81001; 82375; 82803; 82805; 83605; 84145; 85025; 85027; 85379; 87040; 87086; 93268; 94640; 94760; 94762; 96360; 96365; 99283; G0378; J1170; J1644; J1650; J2405; Q3014; A9270-GY

== ENCOUNTER 2023-10-05 20:42 | Emergency (ER) | payer BC ==
--- NOTE | 2023-10-05 21:05 | ERPHSYRPT ---
- History of Present Illness Time Seen by Provider: 10/05/23 21:05 Historian: patient, family Exam Limitations: no limitations Physician History: This is a 22-year-old white male patient who in the last several months was diagnosed with a right lower quadrant ruptured appendix and underwent appendectomy laparoscopically. Postoperatively, patient was found to have a pu lmonary embolus and he is on Eliquis. Things were going well until today he was going with a friend to have a meal however he started having right side abdominal pain which doubled him over with associated vomiting. Patient was brought to the emergency department for evaluation. He has no chest pain. He has no shortness of breath. He has had no other abdominal surgery history. Timing/Duration: today Activities at Onset: none Quality: sharpness, stabbing Abdominal Pain Onset Location: RLQ Pain Radiation: flank (Right flank) Severity of Pain-Max: moderate Severity of Pain-Current: moderate Modifying Factors: Improves With: vomiting Previous symptoms: no prior history, no recent treatment Allergies/Adverse Reactions: azithromycin [From Zithromax] Allergy (Intermediate, Verified 10/05/23 20:53) ceftriaxone [From Rocephin] Allergy (Intermediate, Verified 10/05/23 20:53) Home Medications: Apixaban [Eliquis 2.5 mg Tablet] 5 mg PO BID 10/05/23 [History] Hx Tetanus, Diphtheria Vaccination/Date Given: Yes Hx Influenza Vaccination/Date Given: No Hx Pneumococcal Vaccination/Date Given: No Travel Risk - International Travel Have you traveled outside of the country in past 3 weeks: No - Emerging Infectious Disease Are you exhibiting symptoms associated with any current EIDs: No - Vaccine Status Hx Covid Vaccintation/Booster/Date Given: No - Review of Systems Constitutional: No Symptoms Eyes: No Symptoms Ears, Nose, & Throat: No Symptoms Respiratory: No Symptoms Cardiac: No Symptoms Abdominal/Gastrointestinal: Abdominal Pain (Right lower ABD pain), Vomiting, Appetite Changes Genitourinary Symptoms: Flank Pain (Right) Musculoskeletal: No Symptoms Skin: No Symptoms Neurological: No Symptoms Psychological: No Symptoms Endocrine: No Symptoms Hematologic/Lymphatic: No Symptoms Immunological/Allergic: No Symptoms All Other Systems: Reviewed and Negative - Past Medical History Pertinent Past Medical History: Yes Neurological History: No Pertinent History ENT History: No Pertinent History, Other Cardiac History: No Pertinent History Respiratory History: Bronchitis Endocrine Medical History: No Pertinent History Musculoskeletal History: No Pertinent History GI Medical History: No Pertinent History History: No Pertinent History Psycho-Social History: No Pertinent History Male Reproductive Disorders: No Pertinent History Other Medical History: 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 both eardrums reconstructed. tumor removed to rt arm Significant Family History: no pertinent family hx - Social History Smoking Status: Never smoker Exposure to second hand smoke: No Drug Use: none Patient Lives Alone: No - Nursing Vital Signs Nursing Vital Signs: Initial Vital Signs Temperature 99.3 F 10/05/23 20:55 Pulse Rate 75 10/05/23 20:55 Respiratory Rate 18 10/05/23 20:55 Blood Pressure 140/93 10/05/23 20:55 O2 Sat by Pulse Oximetry 100 10/05/23 20:55 Pain Scale Pain Intensity 7 - Physical Exam General Appearance: mild distress, alert, anxiety Eye Exam: PERRL/EOMI, eyes nml inspection Ears, Nose, Throat Exam: normal ENT inspection, moist mucous membranes Neck Exam: normal inspection, non-tender, supple, full range of motion Respiratory Exam: normal breath sounds, lungs clear, airway intact, No chest tenderness, No respiratory distress Cardiovascular Exam: regular rate/rhythm, normal heart sounds, normal peripheral pulses Gastrointestinal/Abdomen Exam: soft, normal bowel sounds, No tenderness Rectal Exam: not done Back Exam: normal inspection, normal range of motion, CVA tenderness, No vertebral tenderness (Right flank pain) Extremity Exam: normal inspection, normal range of motion, pelvis stable Neurologic Exam: alert, oriented x 3, cooperative, historical manuscripts curator II-XII nml as tested, nml cerebellar function, nml station & gait, sensation nml Skin Exam: normal color, warm, dry Lymphatic Exam: No adenopathy SpO2 Interpretation: normal O2 Delivery: Room Air - Course Nursing assessment & vital signs reviewed: Yes Ordered Tests: Active Orders 24 hr Category Date Time Status IV Insertion STAT Care 10/05/23 21:26 Active ABDOMEN AND PELVIS W/0 CONTRAS [CT] Stat Exams 10/05/23 21:26 Completed AMYLASE Stat Lab 10/05/23 21:26 Completed CBC W DIFF Stat Lab 10/05/23 21:09 Completed CMP Stat Lab 10/05/23 21:26 Completed CULTURE,URINE Stat Lab 10/05/23 22:56 Received LIPASE Stat Lab 10/05/23 21:26 Completed UA W/RFX UR CULTURE Stat Lab 10/05/23 22:56 Completed Medication Summary Discontinued Medications Generic Name Dose Route Start Last Admin Trade Name Francisco PRN Reason Stop Dose Admin Hydromorphone HCl 1 mg 10/05/23 21:26 10/05/23 21:39 Hydromorphone 1 Mg/1ml Inj IV 10/05/23 21:27 1 mg STAT ONE Administration Hydromorphone HCl Confirm 10/05/23 21:38 Hydromorphone 1 Mg/1ml Inj Administered 10/05/23 21:39 Dose 1 mg .ROUTE .STK-MED ONE Sodium Chloride 1,000 mls @ 999 mls/hr 10/05/23 21:26 10/05/23 22:40 Sodium Chloride 0.9% 1000 Ml IV 10/05/23 22:26 Infused .Q1H1M STA Infusion Sodium Chloride Confirm 10/05/23 21:38 Sodium Chloride 0.9% 1000 Ml Administered 10/05/23 21:39 Dose 1,000 mls @ ud .ROUTE .STK-MED ONE Ondansetron HCl 4 mg 10/05/23 21:26 10/05/23 21:39 Ondansetron Hcl 4 Mg/2 Ml Vial IV 10/05/23 21:27 4 mg STAT ONE Administration Ondansetron HCl Confirm 10/05/23 21:37 Ondansetron Hcl 4 Mg/2 Ml Vial Administered 10/05/23 21:38 Dose 4 mg .ROUTE .STK-MED ONE Tamsulosin HCl 0.4 mg 10/05/23 22:46 10/05/23 22:52 Tamsulosin Hcl 0.4 Mg Cap PO 10/05/23 22:47 0.4 mg STAT ONE Administration Tamsulosin HCl Confirm 10/05/23 22:50 Tamsulosin Hcl 0.4 Mg Cap Administered 10/05/23 22:51 Dose 0.4 mg .ROUTE .STK-MED ONE Lab/Rad Data: Laboratory Result Diagrams 10/05/23 21:09 10/05/23 21:26 Laboratory Results 10/05/23 10/05/23 10/05/23 Range/Units 22:56 21:26 21:09 WBC 15.2 H (4.0-10.5) x10^3/uL RBC 5.17 (4.1-5.6) x10^6/uL Hgb 14.8 (12.5-18.0) g/dL Hct 43.5 (42-50) % MCV 84.1 (78-100) fL MCH 28.6 (26-32) pg MCHC 34.0 (32-36) g/dL RDW 12.6 (11.5-14.0) % Plt Count 256 (150-450) x10^3/uL MPV 10.6 (7.5-11.0) fL Gran % 86.4 H (36.0-66.0) % Immature Gran % (Auto) 0.4 (0.00-0.4) % Nucleat RBC Rel Count 0.0 (0.00-0.1) % Eos # (Auto) 0.01 (0-0.5) x10^3/uL Immature Gran # (Auto) 0.06 H (0.00-0.03) x10^3u/L Absolute Lymphs (auto) 1.39 (1.0-4.6) x10^3/uL Absolute Monos (auto) 0.56 (0.0-1.3) x10^3/uL Absolute Nucleated RBC 0.00 (0.00-0.01) x10^3u/L Lymphocytes % 9.2 L (24.0-44.0) % Monocytes % 3.7 (0.0-12.0) % Eosinophils % 0.1 (0.00-5.0) % Basophils % 0.2 (0.0-0.4) % Absolute Granulocytes 13.11 H (1.4-6.9) x10^3/uL Basophils # 0.03 (0-0.4) x10^3/uL Sodium 141 (135-145) mmol/L Potassium 3.4 L (3.5-5.1) mmol/L Chloride 103 (98-107) mmol/L Carbon Dioxide 24 (22-30) mmol/L Anion Gap 17.8 H (5-15) MEQ/L BUN 13 (9-20) mg/dL Creatinine 0.86 (0.66-1.25) mg/dL Estimated GFR 126.3 ML/MIN Glucose 129 H (74-106) mg/dL Calcium 9.5 (8.4-10.2) mg/dL Total Bilirubin 0.60 (0.2-1.3) mg/dL AST 30 (17-59) U/L ALT 35 (0-50) U/L Alkaline Phosphatase 93 (38-126) U/L Serum Total Protein 8.4 H (6.3-8.2) g/dL Albumin 4.8 (3.5-5.0) g/dL Amylase 57 (30-110) U/L Lipase 39 (23-300) U/L Urine Color Yellow (Yellow) Urine Appearance Clear (Clear) Urine pH 8.5 A (4.6-8.0) Ur Specific [place] 1.020 (1.005-1.030) Urine Protein Trace A (Negative) Urine Glucose (UA) Negative (Negative) mg/dL Urine Ketones 15 A (Negative) Urine Blood Large A (Negative) Urine Nitrite Negative (Negative) Urine Bilirubin Negative (Negative) Urine Urobilinogen 1.0 A (0.2) mg/dL Ur Leukocyte Esterase Negative (Negative) U Hyaline Cast (Auto) NONE SEEN (0-2) /LPF Urine Microscopic RBC >100 A (0-5) /HPF Urine Microscopic WBC 0-2 (0-5) /HPF Ur Epithelial Cells None Seen (None Seen) /HPF Urine Bacteria None Seen (None Seen) /HPF Urine Culture Reflexed YES (NO) - Progress Progress: improved, pain not gone completely, re-examined Progress Note: 10/05/23 22:50 This patient's medical issue is 1 of moderate complexity. The level of complexity and the workup performed is based on review of the patient's past medical history, review the patient's medication list, review of the patient drug allergy list, history present illness and physical findings on examination. This patient's workup includes placement of intravenous line, infusion of normal saline solution, infusion of 4 mg intravenous Zofran, infusion of 1 mg intravenous Dilaudid, CBC, CMP, amylase, lipase urinalysis, CT scan abdomen pelvis without contrast. CT scan of the abdomen pelvis without contrast was interpreted by the radiologist. There is a 3 mm distal ureteral stone at the UV junction with mild right-sided hydronephrosis, minimal perinephric stranding on the right side and minimal right hydroureter. There is resolution of the right lung base and right lower quadrant findings seen on the prior CT scan of the abdomen pelvis without contrast. Counseled pt/family regarding: lab results, diagnosis, need for follow-up, rad results Medical Desision Making - Independent Historian Additional History obtained from: Mother - Diagnostic Testing Diagnostic test were ordered, analyzed, and reviewed by me: Yes Radiological Interpretation: Reviewed by me, Teleradiologist Report - Risk of complications The pt has a mod risk of morbidity or mortality based on: Need for prescription drug management - Departure Departure Disposition: Home Clinical Impression: Right ureteral calculus Condition: Stable Critical Care Time: No Referrals: KATHY TALAMANTES NP [Primary Care Provider] - Follow up/PCP as directed Additional Instructions: Drink plenty of clear liquids. Take your medications as prescribed. Follow-up with your primary care provider on 10/08/2023 with possible referral to urologist if indicated. Prescriptions: Hydrocodone/APAP 5/325 [[place] 5/325 mg] 1 each PO Q8H PRN PRN #8 tablet MDD 3 PRN Reason: Pain Tamsulosin HCl 0.4 mg [Flomax 0.4 MG] 0.4 mg PO DAILY #7 cap
[2023-10-05 21:08] VITALS: RESP 18; TEMP 99.3; O2SAT 100
[2023-10-05 21:33] LABS: Absolute Neutrophil Ct (ANC) 13.11 x10^3/uL (1.4-6.9); BASOPHIL % 0.2 % (0.0-0.4); Basophil (Absolute #) 0.03 x10^3/uL (0-0.4); Eosinophil % 0.1 % (0.00-5.0); Eosinophil (Absolute #) 0.01 x10^3/uL (0-0.5); Hematocrit 43.5 % (42-50); Hemoglobin 14.8 g/dL (12.5-18.0); IMMATURE GRAN # 0.06 x10^3u/L (0.00-0.03); IMMATURE GRAN % 0.4 % (0.00-0.4); Lymphocyte (Absolute #) 1.39 x10^3/uL (1.0-4.6); Lymphocytes % 9.2 % (24.0-44.0); Mean Cell Volume 84.1 fL (78-100); Mean Corpuscular Hemoglobin 28.6 pg (26-32); Mean Platelet Volume 10.6 fL (7.5-11.0); Monocyte (Absolute #) 0.56 x10^3/uL (0.0-1.3); Monocytes % 3.7 % (0.0-12.0); Neutrophil % 86.4 % (36.0-66.0); Platelet Count 256 x10^3/uL (150-450); Red Blood Count 5.17 x10^6/uL (4.1-5.6); Red Cell Distribution Width 12.6 % (11.5-14.0); White Blood Count 15.2 x10^3/uL (4.0-10.5)
[2023-10-05] MEDS ORDERED: Zofran 4 MG/2 ML VIAL ONE (21:37)
[2023-10-05] MEDS ORDERED: Sodium Chloride 0.9% 1000 ML 1,000 ML ONE (21:38)
[2023-10-05] MEDS ORDERED: Hydromorphone 1 mg/ml Injection ONE (21:38)
[2023-10-05] MEDS: Hydromorphone 1 mg/ml Injection IV ONE (21:39)
[2023-10-05] MEDS: Zofran 4 MG/2 ML VIAL IV ONE (21:39)
[2023-10-05] MEDS: Sodium Chloride 0.9% 1000 ML 1,000 ML IV STA (21:39)
[2023-10-05 21:40] LABS: ALBUMIN 4.8 g/dL (3.5-5.0); ANION GAP 17.8 MEQ/L (5-15); BILIRUBIN,TOTAL 0.6 mg/dL (0.2-1.3); Calcium 9.5 mg/dL (8.4-10.2); Creatinine 1 0.86 mg/dL (0.66-1.25); EST GLOMERULAR FILTRATION RATE 126.3 ML/MIN; Potassium 3.4 mmol/L (3.5-5.1); Total Protein 8.4 g/dL (6.3-8.2)
--- NOTE | 2023-10-05 22:40 | XRAY ---
CLINICAL HISTORY: Abdominal pain TECHNIQUE: A CT scan of the abdomen was performed without IV contrast, Coronal and sagittal reconstructive images were also obtained. One of the following dose reduction techniques were utilized for this exam: Automated exposure control, adjustment of the mA and/or kV according to patient size, use of iterative reconstruction COMPARISON: Prior CT abdomen dated 06/20/2023 FINDINGS: Lung bases mild ground glass opacities with cycle pleuroparenchymal fibrotic changes and linear subsegmental atelectasis. Prior pulmonary consolidations are grossly resolved within the current study. The right kidney appears bulky with mild perinephric fat stranding and mild hydroureteronephrosis is seen due to a distal ureter stone measuring approximately 3 mm within the UVJ. The left kidney is normal in size and shape. No calculi or hydronephrosis is seen on the left. The liver is normal in size without focal parenchymal abnormality. The intrahepatic biliary radicals and the bile ducts are normal. The gallbladder is normal. No pericholecystic fluid collection or radio-dense calculi in the gall bladder. The spleen, pancreas, and adrenal glands are unremarkable. Resolution of the right lower quadrant findings seen on previous CT. The ascending colon, the transverse colon, the descending colon, visualized small bowel loops are unremarkable. There is no evidence of significant enlargement of the mesenteric or retroperitoneal lymph nodes. The osseous structures in the lower rib cage and lumbar spine show no abnormality. Pelvis: The urinary bladder is unremarkable. The rectosigmoid colon is unremarkable. The prostate is unremarkable The pelvic vasculature is unremarkable. No evidence of pelvic lymphadenopathy. No definite bony abnormalities could be depicted. IMPRESSION: 1. Right-sided mild hydronephrosis with a small, distal ureter stone within the UVJ along with mild hydroureter, a new finding. 2. Resolution of the right lung base and right lower quadrant findings seen on previous CT. Electronically Signed by: Cintia Hyde MD. (10/05/2023 22:37:20 EDT)
[2023-10-05] MEDS ORDERED: Flomax 0.4 MG ONE (22:50)
[2023-10-05] MEDS: Flomax 0.4 MG PO ONE (22:52)
[2023-10-05 23:10] LABS: Appearance Clear (Clear); Bacteria None Seen /HPF (None Seen); Bilirubin Negative (Negative); Blood Large (Negative); Epithelial Cells None Seen /HPF (None Seen); Glucose, Urine Negative (Negative); Hyaline Casts NONE SEEN /LPF (0-2); Ketones 15 (Negative); Leukocyte Esterase Negative (Negative); Nitrite Negative (Negative); Ph 8.5 (4.6-8.0); Protein,Urine Dip Trace (Negative); RBC >100 /HPF (0-5); WBC 0-2 /HPF (0-5)
[2023-10-05 23:13] LABS: ADD URINE CULTURE? YES (NO)
[2023-10-06 00:19] VITALS: BP 138/82; PULSE 85
== END 2023-10-06 00:20 | disposition home or self-care (01) ==
LOC: ED 20:42
DX: N13.2 Hydronephrosis with renal and ureteral calculous obstruction (principal); R10.31 Right lower quadrant pain; R11.2 Nausea with vomiting, unspecified; Z79.01 Long term (current) use of anticoagulants; Z79.891 Long term (current) use of opiate analgesic; Z28.310 Unvaccinated for COVID-19
CPT/HCPCS: 36000; 36415; 74176; 80053; 81001; 82150; 83690; 85025; 87086; 96374; 96375; 99284; J1170; J2405; A9270-GY